=== PATIENT | female | born 1975 | race Caucasian/White ===

== ENCOUNTER 2016-06-06 09:58 | Emergency (ER) | payer MEDICAID, OTHER ==
[2016-06-06] MEDS ORDERED: IPRATROPIUM/ALBUTEROL 0.5-2.5 MG/3 ML AMPUL NEB ONE (10:06)
--- NOTE | 2016-06-06 10:06 | ER Document Report ---
ED Medical Screen (RME) - General Stated Complaint: FEVER,HEADACHE Notes: patient is a 40 year old female presents with head cold/congestion with wheezing. previously treated with steroids, singulair and advair. now with fever. cough worse at night. Cough nonproductive. migraine headache for two days. she has a rx for maxalt but hasnt filled it. fever at home 101.9, took BC powder I have greeted and performed a rapid initial assessment of this patient. A comprehensive ED assessment and evaluation of the patient, analysis of test results and completion of the medical decision making process will be conducted by additional ED providers. TRAVEL OUTSIDE OF THE [place] IN LAST 30 DAYS: No - Related Data Allergies/Adverse Reactions: cephalexin monohydrate [From [employer]] Allergy (Intermediate, Verified 06/06/16 10 :03) rash Past Medical History - Past Medical History Cardiac Medical History: Denies: Hx Coronary Artery Disease, Hx Heart Attack, Hx Hypertension Pulmonary Medical History: Reports: Hx Asthma - no recent ER visit Denies: Hx Bronchitis, Hx COPD, Hx Pneumonia Neurological Medical History: Denies: Hx Cerebrovascular Accident, Hx Seizures Musculoskeltal Medical History: Denies Hx Arthritis Past Surgical History: Reports: Hx Hysterectomy - Immunizations Hx Diphtheria, Pertussis, Tetanus Vaccination: Yes Physical Exam - Vital signs Vitals: Temp Pulse Resp BP Pulse Ox 99.2 F 105 H 20 135/88 H 97 06/06/16 10:01 06/06/16 10:01 06/06/16 10:01 06/06/16 10:01 06/06/16 10:01 Course - Vital Signs Vital signs: Temp Pulse Resp BP Pulse Ox 99.2 F 105 H 20 135/88 H 97 06/06/16 10:01 06/06/16 10:01 06/06/16 10:01 06/06/16 10:01 06/06/16 10:01
--- NOTE | 2016-06-06 11:15 | ER Document Report ---
ED General - General Chief Complaint: Asthma Exacerbation Stated Complaint: FEVER,HEADACHE Mode of Arrival: Ambulatory Information source: Patient Notes: This is a 40-year-old female with a history of asthma who presents with 2 day history of fevers and sinus congestion and pressure/pain. She has also had a cough and wheezing which is responsive to her home nebulizers. She states that she was treated with steroid taper about a month ago but was not having fevers at that time. Her temperature at home today was 101.9 and she took a BC powder prior to her arrival here. She has no chest pain or shortness of breath. She is tolerating po without difficulty. TRAVEL OUTSIDE OF THE [place] IN LAST 30 DAYS: No - Related Data Allergies/Adverse Reactions: cephalexin monohydrate [From [employer]] Allergy (Intermediate, Verified 06/06/16 10 :03) rash Past Medical History - General Information source: Patient - Social History Smoking Status: Current Some Day Smoker Chew tobacco use (# tins/day): No Frequency of alcohol use: None Drug Abuse: None Family History: Reviewed & Not Pertinent Patient has suicidal ideation: No Patient has homicidal ideation: No - Past Medical History Cardiac Medical History: Denies: Hx Coronary Artery Disease, Hx Heart Attack, Hx Hypertension Pulmonary Medical History: Reports: Hx Asthma Denies: Hx Bronchitis, Hx COPD, Hx Pneumonia Neurological Medical History: Denies: Hx Cerebrovascular Accident, Hx Seizures Renal/ Medical History: Denies: Hx Peritoneal Dialysis Musculoskeltal Medical History: Denies Hx Arthritis Past Surgical History: Reports: Hx Hysterectomy - Immunizations Hx Diphtheria, Pertussis, Tetanus Vaccination: Yes Review of Systems - Review of Systems Notes: REVIEW OF SYSTEMS: CONSTITUTIONAL : Fever as per history of present illness EENT: Denies eye, ear, throat, or mouth pain or symptoms. Sinus pain and pressure CARDIOVASCULAR: Denies chest pain. RESPIRATORY: Cough and wheeze as per history of present illness GASTROINTESTINAL: Denies abdominal pain. Denies nausea, vomiting, or diarrhea. GENITOURINARY: Denies difficulty urinating, painful urination, burning, frequency, or blood in urine. MUSCULOSKELETAL: Denies neck or back pain or joint pain or swelling. SKIN: Denies rash or skin lesions. HEMATOLOGIC : Denies easy bruising or bleeding. LYMPHATIC: Denies swollen, enlarged glands. NEUROLOGICAL: Denies altered mental status or loss of consciousness. Mild diffuse headache. PSYCHIATRIC: Denies anxiety or stress or depression. ALL OTHER SYSTEMS REVIEWED AND NEGATIVE. Physical Exam - Vital signs Vitals: Temp Pulse Resp BP Pulse Ox 99.2 F 105 H 20 135/88 H 97 06/06/16 10:06/06/16 10:06/06/16 10:06/06/16 10:06/06/16 10:01 - Notes Notes: PHYSICAL EXAMINATION: GENERAL: Well-appearing, well-nourished and in no acute distress. Pleasant and conversant with no conversational dyspnea HEAD: Atraumatic, normocephalic. EYES: Pupils equal round and reactive to light, extraocular movements intact, sclera anicteric, conjunctiva are normal. ENT: nares with thick mucus, oropharynx clear without exudates. Moist mucous membranes. Bilateral facial maxillary sinus tenderness to palpation NECK: Normal range of motion, supple without lymphadenopathy LUNGS: Good air movement bilaterally with occasional faint end expiratory wheezes bilaterally. No rhonchi. HEART: Regular rate and rhythm without murmurs ABDOMEN: Soft, nontender, normoactive bowel sounds. No guarding, no rebound. No masses appreciated. EXTREMITIES: Normal range of motion, no pitting or edema. NEUROLOGICAL: Cranial nerves grossly intact. Normal speech. No gross focal motor or sensory deficits appreciated. PSYCH: Normal mood, normal affect. SKIN: Warm, Dry, normal turgor, no rashes or lesions noted. Course - Re-evaluation Re-evalutation: 06/06/16 11:15 Patient states that she is already feeling better after the neb treatment given to her upon check-in. We discussed sinusitis and the fact that her chest x-ray is clear today. Will treat with antibiotics and steroids. Patient to continue nebulizer at home. She will follow with her primary care physician. We discussed strict return precautions and she is comfortable with the plan. - Vital Signs Vital signs: Temp Pulse Resp BP Pulse Ox 99.2 F 105 H 16 135/88 H 97 06/06/16 10:06/06/16 10:06/06/16 10:29 06/06/16 10:06/06/16 10:01 - Diagnostic Test Radiology reviewed: Image reviewed, Reports reviewed - Chest x-ray negative Discharge - Discharge Clinical Impression: Asthma Qualifiers: Asthma severity: unspecified severity Asthma complication type: with acute exacerbation Qualified Code(s): J45.901 - Unspecified asthma with (acute) exacerbation Sinusitis Qualifiers: Sinusitis location: maxillary Chronicity: acute Recurrence: not specified as recurrent Qualified Code(s): J01.00 - Acute maxillary sinusitis, unspecified Condition: Stable Disposition: HOME, SELF-CARE Additional Instructions: ASTHMA: You have been diagnosed as having asthma. This is a condition where there is episodic tightness in the bronchial tubes. Allergies, infections, and polluted or cold air may be contributing factors. Emergency treatment of a severe asthma attack may include adrenaline shots , or bronchodilator aerosol. You may feel lightheaded, have a decreased exercise tolerance and a rapid pulse for an hour or two. Rest and get plenty of fluids. Home treatment of asthma requires bronchodilator drugs. These can be administered by injection, inhalation, or by mouth. Antibiotics and corticosteroids may be required for some patients. You should avoid chemical fumes, dusts, pollens, and exercising in very cold or dry air. If you smoke, stop!! If you develop a fever, increased wheezing, chest pain, or severe shortness of breath, you should contact the doctor immediately. STEROID MEDICATION: You have been given an injection of or oral medicine of the cortisone/ steroid class. This medication is used to control inflammation or allergy. Jadiel t is usually only given for a short period of time, until the acute process subsides. There are usually no side effects from short-term use of cortisone-like medications. Some persons feel an increased sense of well-being and are not sleepy at bedtime. Long-term use of cortisone medications is best avoided, unless required for a severe condition. If your condition does not remit, or relapses after the course of corticosteroid medication, you should consult your physician. INHALED BRONCHODILATORS: You have received treatment(s) of and/or prescription for an inhaled bronchodilator -- a medication which stimulates the airways in the lung to dilate. This improves the flow of air in asthma, bronchitis, and emphysema. These medicines have some similarity to adrenaline, and can cause similar side effects: shakiness, racing heart, and a sense of nervousness. These side effects decrease with time. Contact your doctor if these side effects are severe. Do not over-use the medicine. Too-frequent use of the inhaler may make it ineffective. Call your doctor if the inhaler is not controlling your symptoms at the prescribed doses. SMOKING: If you smoke, you should stop smoking. The tar and chemicals in cigarette smoke are harmful. Smoking has been shown to cause: emphysema chronic bronchitis lung cancer mouth and throat cancer stomach and pancreas cancer premature aging defects In addition, smoking increases ear and lung infections in children of smokers. ANTIBIOTIC THERAPY: You have been given an antibiotic prescription. It's important that you take all the medication, unless instructed otherwise by your physician. Failure to complete the entire course can result in relapse of your condition. Common side effects of antibiotics include nausea, intestinal cramping, or diarrhea. Women may develop vaginal yeast infections, and babies can get yeast (thrush) in the mouth following the use of antibiotics. Contact your physician if you develop significant side effects from this medication. Allergy to this antibiotic can result in hives, wheezing, faintness, or itching. If symptoms of allergy occur, stop the medication and call your doctor. Sinusitis You have sinusitis, an infection of the sinus cavities of the face. The sinuses are air-filled chambers which open into the inside of the nose. Bacteria and pus fill a sinus, causing pain, drainage, and fever. Sinusitis is treated with antibiotics. Often, expectorants (to thin the sinus mucous) or decongestants (to reduce swelling) are prescribed as well. Healing requires seven to 10 days. Avoid chemical fumes, pollens, dusts, and smoke (especially cigarette smoke ). Keep the air humidified in your bedroom and work area and take plenty of liquids by mouth. This condition can be serious if the infection spreads. If your symptoms worsen, or if you develop severe headache, high fever, stiff neck, or a rash, you must call the doctor or return for re-evaluation. FOLLOW-UP CARE: If you have been referred to a physician for follow-up care, call the physician s office for an appointment as you were instructed or within the next two days. If you experience worsening or a significant change in your symptoms, notify the physician immediately or return to the Emergency Department at any time for re-evaluation. Prescriptions: Doxycycline Hyclate 100 mg PO BID #20 capsule Guaifenesin/Codeine Phos [Robitussin-AC Syrup 59 ml] 10 ml PO QIDP PRN #200 ml PRN Reason: Prednisone 20 mg PO TID #15 tablet Forms: Return to Work
[2016-06-06 11:47] VITALS: BP 132/86
== END 2016-06-06 11:40 | disposition home or self-care (01) ==
LOC: ER 09:58
DX: J01.00 Acute maxillary sinusitis, unspecified (principal); J45.901 Unspecified asthma with (acute) exacerbation; R50.9 Fever, unspecified; R51 Headache; R09.81 Nasal congestion; F17.200 Nicotine dependence, unspecified, uncomplicated
CPT/HCPCS: 94640; 99284; 71020; J7620

== ENCOUNTER 2016-08-23 09:41 | Emergency (ER) | payer OTHER ==
[2016-08-23] MEDS ORDERED: PREDNISONE 20 MG TABLET PO ONE (10:26)
[2016-08-23] MEDS ORDERED: IPRATROPIUM/ALBUTEROL 0.5-2.5 MG/3 ML AMPUL NEB ONE (10:26)
--- NOTE | 2016-08-23 10:27 | ER Document Report ---
ED Medical Screen (RME) - General Chief Complaint: Asthma Exacerbation Stated Complaint: BREATHING ISSUES Time Seen by Provider: 08/23/16 10:26 Mode of Arrival: Ambulatory Information source: Patient Notes: Presents complaining of asthma exacerbation for the past 2 days. Pt States she has used her albuterol inhaler without improvement of her symptoms. Patient denies any fever. Cough has been nonproductive. TRAVEL OUTSIDE OF THE [place] IN LAST 30 DAYS: No - Related Data Allergies/Adverse Reactions: cephalexin monohydrate [From [employer]] Allergy (Intermediate, Verified 08/23/16 09 :48) rash Past Medical History - Social History Chew tobacco use (# tins/day): No Frequency of alcohol use: None Drug Abuse: None - Past Medical History Cardiac Medical History: Denies: Hx Coronary Artery Disease, Hx Heart Attack, Hx Hypertension Pulmonary Medical History: Reports: Hx Asthma Denies: Hx Bronchitis, Hx COPD, Hx Pneumonia Neurological Medical History: Denies: Hx Cerebrovascular Accident, Hx Seizures Renal/ Medical History: Denies: Hx Peritoneal Dialysis Musculoskeltal Medical History: Denies Hx Arthritis Past Surgical History: Reports: Hx Hysterectomy - Immunizations Hx Diphtheria, Pertussis, Tetanus Vaccination: Yes Physical Exam - Vital signs Vitals: Temp Pulse Resp BP Pulse Ox 98.4 F 89 26 H 138/84 H 98 08/23/16 09:45 08/23/16 09:45 08/23/16 09:45 08/23/16 09:45 08/23/16 09:45 - Respiratory Respiratory status: No respiratory distress Breath sounds: Nonproductive cough, Wheezing Course - Vital Signs Vital signs: Temp Pulse Resp BP Pulse Ox 98.4 F 89 26 H 138/84 H 98 08/23/16 09:45 08/23/16 09:45 08/23/16 09:45 08/23/16 09:45 08/23/16 09:45
[2016-08-23] MEDS: ALBUTEROL SULFATE 0.083% NEB 2.5 MG/3 ML AMPUL NEB SCH ×2 (11:11→11:38)
--- NOTE | 2016-08-23 11:17 | ER Document Report ---
HPI - HPI Patient complains to provider of: asthma Pain Level: 1 Context: Patient is a 41-year-old female presents emergency department complaining of cough with associated shortness of breath intermittently for the past 2 days. Patient states she has a history of asthma with relief from her inhaler. Patient states that she has relief for about a couple hours but then had another fit. Any productive cough, fever, chills, chest pain - REPRODUCTIVE Reproductive: DENIES: : - DERM Skin Color: Normal Past Medical History - General Information source: Patient - Social History Smoking Status: Current Some Day Smoker Chew tobacco use (# tins/day): No Frequency of alcohol use: None Drug Abuse: None Family History: Reviewed & Not Pertinent Patient has suicidal ideation: No Patient has homicidal ideation: No - Past Medical History Cardiac Medical History: Denies: Hx Coronary Artery Disease, Hx Heart Attack, Hx Hypertension Pulmonary Medical History: Reports: Hx Asthma Denies: Hx Bronchitis, Hx COPD, Hx Pneumonia Neurological Medical History: Denies: Hx Cerebrovascular Accident, Hx Seizures Renal/ Medical History: Denies: Hx Peritoneal Dialysis Musculoskeltal Medical History: Denies Hx Arthritis Past Surgical History: Reports: Hx Hysterectomy - Immunizations Hx Diphtheria, Pertussis, Tetanus Vaccination: Yes Vertical Provider Document - CONSTITUTIONAL Agree With Documented VS: Yes Exam Limitations: No Limitations General Appearance: WD/WN, No Apparent Distress Notes: PHYSICAL EXAM GENERAL: Alert, interacts well. NECK: Full range of motion. Supple. Trachea midline. LUNGS: mild wheezes on expiration b/l without, rales, or rhonchi. No respiratory distress. HEART: Regular rate and rhythm. No murmurs, gallops, or rubs. NEUROLOGICAL: Alert and oriented x4. Normal speech. PSYCH: Normal affect, normal mood. SKIN: Warm, dry, normal turgor. No rashes or lesions noted. - INFECTION CONTROL TRAVEL OUTSIDE OF THE [place] IN LAST 30 DAYS: No - RESPIRATORY O2 Sat by Pulse Oximetry: 98 Course - Re-evaluation Re-evalutation: 08/23/16 11:43 Patient is a 41-year-old female is hemodynamic stable, no acute distress and afebrile. Patient received 2 breathing treatments in the department and feels better. Patient medicated with steroids and stable for discharge home. Patient to follow-up with primary care next week. Strict return precautions discussed and patient agrees with plan. - Vital Signs Vital signs: Temp Pulse Resp BP Pulse Ox 98.4 F 89 26 H 138/84 H 98 08/23/16 09:45 08/23/16 09:45 08/23/16 09:45 08/23/16 09:45 08/23/16 09:45 Discharge - Discharge Clinical Impression: Asthma Condition: Good Disposition: HOME, SELF-CARE Instructions: Asthma ([facility]) Additional Instructions: Follow up with your primary care in 3-5 days if symptoms do not improve Prescriptions: Prednisone [Deltasone 20 mg Tablet] 3 tab PO DAILY 3 Days Forms: Elevated Blood Pressure, Return to Work
[2016-08-23 11:52] VITALS: BP 125/83
== END 2016-08-23 11:52 | disposition home or self-care (01) ==
LOC: ER 09:41
DX: J45.909 Unspecified asthma, uncomplicated (principal); R05 Cough; R06.02 Shortness of breath; F17.200 Nicotine dependence, unspecified, uncomplicated
CPT/HCPCS: 94640 ×2; 99284; J7512; J7620

== ENCOUNTER 2016-10-29 03:28 | Inpatient (IN) | payer OTHER ==
[2016-10-29] MEDS ORDERED: IPRATROPIUM/ALBUTEROL 0.5-2.5 MG/3 ML AMPUL NEB ONE (03:32)
[2016-10-29] MEDS ORDERED: PREDNISONE 20 MG TABLET PO ONE (03:32)
[2016-10-29] MEDS ORDERED: ALBUTEROL SULFATE 0.083% NEB 2.5 MG/3 ML AMPUL NEB SCH (03:48)
[2016-10-29] MEDS ORDERED: ALBUTEROL SULFATE 0.083% NEB 2.5 MG/3 ML AMPUL NEB ONE ×2 (03:50→04:31)
[2016-10-29] MEDS ORDERED: METHYLPREDNISOLONE INJ 125 MG/2 ML SDV IV ONE (03:51)
--- NOTE | 2016-10-29 03:54 | ER Document Report ---
ED General - General Chief Complaint: Breathing Difficulty Stated Complaint: TROUBLE BREATHING Time Seen by Provider: 10/29/16 03:46 Notes: Patient is a 41-year-old female presents with complaint of some shortness of breath. subjective fevers. No vomiting. No diarrhea. Had a cough approximately 2 days ago. In the last 24 hours she has had wheezing and significant difficulty breathing. She tried using her nebulizer at home. She was giving herself DuoNeb treatments. They are not helping. She therefore came to the ER via private vehicle. was driving. She is a smoker. She does have history of asthma since childhood. She has been hospitalized for asthma in the past. She has never required a ventilator. No other complaints at this time. TRAVEL OUTSIDE OF THE [place] IN LAST 30 DAYS: No - Related Data Allergies/Adverse Reactions: cephalexin monohydrate [From [employer]] Allergy (Intermediate, Verified 10/29/16 03 :34) rash Past Medical History - Social History Smoking Status: Current Every Day Smoker Frequency of alcohol use: None Drug Abuse: None Family History: Reviewed & Not Pertinent - Past Medical History Cardiac Medical History: Denies: Hx Coronary Artery Disease, Hx Heart Attack, Hx Hypertension Pulmonary Medical History: Reports: Hx Asthma Denies: Hx Bronchitis, Hx COPD, Hx Pneumonia Neurological Medical History: Denies: Hx Cerebrovascular Accident, Hx Seizures Renal/ Medical History: Denies: Hx Peritoneal Dialysis Musculoskeltal Medical History: Denies Hx Arthritis Past Surgical History: Reports: Hx Hysterectomy - Immunizations Hx Diphtheria, Pertussis, Tetanus Vaccination: Yes Review of Systems - Review of Systems Notes: My Normal Review Basic REVIEW OF SYSTEMS: CONSTITUTIONAL : Denies fever, chills, or sweats. Denies recent illness. EENT: Denies eye, ear, throat, or mouth pain or symptoms. Denies nasal or sinus congestion. CARDIOVASCULAR: Denies chest pain. RESPIRATORY: Wheezing and difficulty breathing. GASTROINTESTINAL: Denies abdominal pain. Denies nausea, vomiting, or diarrhea. MUSCULOSKELETAL: Denies neck or back pain or joint pain or swelling. SKIN: Denies rash or skin lesions. NEUROLOGICAL: Denies altered mental status or loss of consciousness. Denies headache. Denies weakness or paralysis or loss of use of either side. Denies problems with gait or speech. Denies sensory or motor loss. ALL OTHER SYSTEMS REVIEWED AND NEGATIVE. Physical Exam - Vital signs Vitals: Temp Pulse Resp BP Pulse Ox 98.1 F 86 24 H 138/74 H 98 10/29/16 03:34 10/29/16 03:34 10/29/16 03:34 10/29/16 03:34 10/29/16 03:34 - Notes Notes: General Appearance: Well nourished, alert, cooperative, moderate acute distress , no obvious discomfort. Vitals: reviewed, See vital signs table. Head: no swelling or tenderness to the head Eyes: PERRL, EOMI, Conjuctiva clear Mouth: No decreasd moisture Lungs: Diffuse wheezing, No rales, No rhonci, moderate accessory muscle use, fair air exchange bilaterally. Heart: Regular rate, Regular rythm, No murmur, no rub Abdomen: Normal BS, soft, No rigidity, No abdominal tenderness, No guarding, no rebound, no abdominal masses, no organomegaly Extremities: strength 5/5 in all extremities, good pulses in all extremities, no swelling or tenderness in the extremities, no edema. Skin: warm, dry, appropriate color, no rash Neuro: speech clear, oriented x 3, normal affect, responds appropriately to questions. Course - Re-evaluation Re-evalutation: 10/29/16 04:32 On reevaluation patient still has increased work of breathing and still has a large amount of wheezing and diminished air exchange. I have ordered BiPAP as well as continued albuterol treatments. 10/29/16 05:42 Patient is doing much better on the BiPAP. Her work of breathing has decreased significantly. She still has some wheezing but not as severe as it was before. Her air exchange is improving. - Vital Signs Vital signs: Temp Pulse Resp BP Pulse Ox 98.1 F 86 32 H 115/83 99 10/29/16 03:34 10/29/16 03:34 10/29/16 04:47 10/29/16 04:01 10/29/16 04:47 - Laboratory Result Diagrams: 10/29/16 03:46 10/29/16 03:46 Laboratory results interpreted by me: 10/29/16 03:46 WBC 12.1 H Hgb 16.2 H - EKG Interpretation by Me Additional EKG results interpreted by me: 10/29/16 05:20 EKG is reviewed and interpreted by me. EKG shows normal sinus rhythm with rate of [address] segment elevation or depression. No ischemic T-wave inversions. DC interval, QRS duration, QTc intervals are within normal range. No old EKG available for comparison.
[2016-10-29] MEDS: MAGNESIUM SULFATE/D5W 100 ML IV SCH ×2 (04:01→04:30)
--- NOTE | 2016-10-29 05:06 | RADIOLOGY REPORT (SQ) ---
EXAM DESCRIPTION: CHEST SINGLE VIEW COMPLETED DATE/TIME: 10/29/2016 4:53 am REASON FOR STUDY: difficulty breathing COMPARISON: None. EXAM PARAMETERS: NUMBER OF VIEWS: One view. TECHNIQUE: Single frontal radiographic view of the chest acquired. RADIATION DOSE: NA LIMITATIONS: None. FINDINGS: LUNGS AND PLEURA: No opacities, masses or pneumothorax. No pleural effusion. Moderate chr onic hyperinflation. MEDIASTINUM AND HILAR STRUCTURES: No masses. Contour normal. HEART AND VASCULAR STRUCTURES: Heart normal in size. Normal vasculature. BONES: No acute findings. HARDWARE: None in the chest. OTHER: No other significant finding. IMPRESSION: No acute cardiopulmonary findings. TECHNICAL DOCUMENTATION: JOB ID: [id number]
[2016-10-29 05:19] LABS: ABSOLUTE BASOPHILS # (AUTO) 0.1 10^3/uL (0.0-0.2); ABSOLUTE EOSINOPHILS # (AUTO) 0.6 10^3/uL (0.0-0.6); ABSOLUTE LYMPHOCYTES (AUTO) 2.8 10^3/uL (0.5-4.7); ABSOLUTE MONOCYTES (AUTO) 0.7 10^3/uL (0.1-1.4); ABSOLUTE NEUT (AUTO) 7.9 10^3/uL (1.7-8.2); EOSINOPHILS % (AUTO) 5.3 % (0-6); HEMATOCRIT 46.9 % (36.0-47.0); HEMOGLOBIN 16.2 g/dL (12.0-15.5); HGB HCT DIFFERENCE 1.7; LYMPHOCYTES % (AUTO) 23.1 % (13-45); MEAN CORPUSCULAR HGB CONC 34.6 g/dL (32.0-36.0); MEAN CORPUSCULAR VOLUME 93 fl (80-97); MONOCYTES % (AUTO) 5.9 % (3-13); RED BLOOD COUNT 5.07 10^6/uL (3.72-5.28); RED CELL DISTRIBUTION WIDTH 12.8 % (11.5-14.0); SEGMENTED NEUTROPHILS % (AUTO) 64.7 % (42-78); WHITE BLOOD COUNT 12.1 10^3/uL (4.0-10.5)
[2016-10-29 05:40] LABS: ALANINE AMINOTRANSFERASE 32 U/L (9-52); ALBUMIN 4.2 g/dL (3.5-5.0); ALKALINE PHOSPHATASE 91 U/L (38-126); ANION GAP 13 (5-19); ASPARTATE AMINO TRANSFERASE 25 U/L (14-36); BILIRUBIN,DIRECT 0.4 mg/dL (0.0-0.4); BILIRUBIN,TOTAL 0.6 mg/dL (0.2-1.3); BLOOD UREA NITROGEN 10 mg/dL (7-20); CALCIUM 10.2 mg/dL (8.4-10.2); CARBON DIOXIDE 21 mmol/L (22-30); CHLORIDE 108 mmol/L (98-107); CREATININE RESULT 0.76 mg/dL (0.52-1.25); GLUCOSE 90 mg/dL (75-110); POTASSIUM 3.7 mmol/L (3.6-5.0); SODIUM 141.8 mmol/L (137-145); TOTAL PROTEIN 7.2 g/dL (6.3-8.2)
[2016-10-29 06:38] LABS: ADD ON TESTING BLD IN LAB ACKNOWLEDGE
[2016-10-29 07:03] LABS: MAGNESIUM 1.7 mg/dL (1.6-2.3)
[2016-10-29 07:13] LABS: ARTERIAL BLOOD BASE EXCESS -2.2 mmol/L; ARTERIAL BLOOD O2 SATURATION 98.8 % (94-98)
[2016-10-29] MEDS ORDERED: NICOTINE 14 MG/24 HR PATCH.TD24 TD PRN (08:02)
[2016-10-29] MEDS ORDERED: DEXTROSE 40% GEL 15 GM TUBE PO PRN ×2 (08:03)
[2016-10-29] MEDS ORDERED: DEXTROSE 50%-WATER 25 GM/50 ML DISP.SYRIN IV PRN ×2 (08:03)
[2016-10-29] MEDS ORDERED: GLUCAGON,HUMAN RECOMB 1 MG INJ IM PRN (08:03)
[2016-10-29] MEDS ORDERED: INSULIN LISPRO 100 UNIT/ML 3 ML VIAL SUBCUT PRN (08:03)
[2016-10-29] MEDS ORDERED: NORMAL SALINE 1000 ML 1,000 ML IV PRN (08:03)
[2016-10-29] MEDS ORDERED: ALBUTEROL SULFATE 0.083% NEB 2.5 MG/3 ML AMPUL NEB PRN (08:04)
[2016-10-29] MEDS ORDERED: GUAIFENESIN SYRP 200 MG/10 ML UDC PO PRN (08:04)
[2016-10-29] MEDS ORDERED: PROMETHAZINE HCL 25 MG TABLET PO PRN (08:09)
--- NOTE | 2016-10-29 08:54 | PDOC H&P ---
History of Present Illness Admission Date/PCP: 10/29/16 06:13 [facility] Rheumatology [facility] Patient complains of: Short of breath History of Present Illness: JACQUELINE ALEX is a 41 year old female with long-standing asthma, along with rheumatoid arthritis, half pack a day smoker, who presents to the emergency room for evaluation of above complaints. Patient has been discussed with emergency room physician who evaluated the patient. Was in fairly significant respiratory distress upon arrival, with minimal improvement with initial treatment. However, with further treatment including application of BiPAP, her overall clinical picture has improved considerably, according to the emergency room physician. She describes a 2 day history of slowly progressive difficulty breathing, starting with a mildly productive cough, with onset of wheezing and significant worsening in her breathing effort over the past 24 hours. Subjective fever. Mild chest discomfort only with coughing or when her shortness of breath is at its worst. No chills. No nausea vomiting. No diarrhea or dysuria. Has never been intubated for respiratory difficulty. This is her third emergency room visit in 1 year. Very distant history of hospitalization for asthma exacerbation. Currently resting quietly, breathing much more comfortably. Dictation via voice recognition software. Laboratory results are listed in [employer] and are reviewed. X-ray summary results are listed below, with full report(s) reviewed. . EKG reviewed. No prior EKG available for comparison. Social history/personal habits: Single. Has children. Unemployed. Half pack of cigarettes per day. No alcohol or illicit drug use. Allergies/adverse reactions are listed in [employer] and are reviewed. No problems with penicillin. Home medications initially autopopulated into [employer] may not accurately reflect patient's true medications, dosages, and/or frequencies. electrical design technologist to reconcile medications. Unfortunately, patient not certain of all medications/dosages/frequencies. REVIEW OF SYSTEMS: Constitutional: See history and present illness. Eyes: No vision complaints. ENT: No swallowing problems or complaints. Denies hearing loss. Pulmonary: See history and present illness. Cardiovascular: See history and present illness. Gastrointestinal: No current complaints, including nausea or vomiting. Skin: No current complaints, including rashes. Hematologic: Easy bruising. Neurologic: No current complaints, including numbness or tingling. Musculoskeletal: Joint pain from arthritis. Psychiatric: Denies anxiety or depression. Endocrine: No current complaints, including polyuria. Genitourinary: No current complaints, including dysuria. PHYSICAL EXAMINATION: 5 feet 5 inches tall. 66.1 kg. BMI 24.2 kg/m. Blood pressure 118/70. Pulse 90 and regular. 98% saturation on BiPAP 12/6, 30%. Respirations are 24 and unlabored. Temperature 98.1. Well-nourished well-developed female appearing approximately her stated age. Perhaps slightly fatigued. Mildly anxious, without agitation. Awake alert and cooperative. Boyfriend is present at her side; patient approves. Female emergency room nursing educator Lilly is present. Skin is warm and dry. No grossly obvious evidence of rash in areas of skin examined. No subcutaneous nodules palpated. ENT: Hearing grossly normal to normal conversation. Tongue midline on protrusion pink and slightly tacky. Exam slightly limited by BiPAP mask with attaching straps. Eyes: No scleral icterus. Pupils equal and reactive to light at 4 mm. [place] conjunctivae. Neck is supple and nontender to gentle active range of motion and palpation. Midline trachea. No palpable thyroid nodule mass enlargement or tenderness. Lymphatic: No palpable cervical or clavicular nodes. Neck and lymphatic exams limited by patient body habitus. Exam slightly limited by BiPAP mask with attaching straps. Psychiatric: Reasonable insight into acute and chronic medical issues. Oriented to time location and why here. Lungs: Auscultation reveals equal breath sounds bilaterally. No use of accessory respiratory muscles. Mild diffuse expiratory wheezing bilaterally, with slightly coarse breath sounds toward the base. Cardiovascular: Heart regular rate and rhythm, without gallop murmur or rub. No abdominal aortic bruits. No ankle or pedal edema. Faintly palpable dorsalis pedis pulses. Difficult to evaluate for carotid bruit due to airway sounds from BiPAP device. Abdomen:soft slightly distended nontender with positive bowel sounds. Unable to adequately evaluate abdomen for masses or organomegaly due to distention. Extremities: Feet are warm and dry. No calf tenderness to compression. No grossly obvious visual evidence of calf swelling. Gentle manipulation of lower extremities fails to reveal any obvious evidence of injury or instability to knees hips or ankles. Neurologic: Moves upper extremities grossly normally. Patellar reflexes absent. Absent Babinski. Light touch is intact at feet. Dorsiflexion and plantarflexion of feet 5 / 5 and symmetric. Past Medical History Cardiac Medical History: Denies: Atrial Fibrillation, Congestive Heart Failure, Coronary Artery Disease, DVT, Myocardial Infarction, Hyperlipidema, Hypertension, Pulmonary Embolism Pulmonary Medical History: Reports: Asthma Denies: Bronchitis, Chronic Obstructive Pulmonary Disease (COPD), Pneumonia, Sleep Apnea EENT Medical History: Denies: Eyes, Ears, Throat Neurological Medical History: Denies: Hemorrhagic CVA, Ischemic CVA, Seizures Endocrine Medical History: Denies: Diabetes Mellitus Type 1, Diabetes Mellitus Type 2, Hyperthyroidism, Hypothyroidism Renal/ Medical History: Reports: None GI Medical History: Denies: Cirrhosis, Gastroesophageal Reflux Disease, Hepatitis, Peptic Ulcer Disease Musculoskeltal Medical History: Reports: Arthritis - Rheumatoid Skin Medical History: Reports: None Psychiatric Medical History: Reports: Tobacco Dependency Denies: Alcohol Dependency, Depression, General Anxiety Disorder, Substance Abuse Hematology: Reports: Anemia - in past, Other - Easy bruising Infectious Medical History: Denies: Hepatitis B, Hepatitis C Past Surgical History Past Surgical History: Reports: Hysterectomy Social History Information Source: Patient, Emergency Med Personnel, [facility] Records Smoking Status: Current Every Day Smoker Frequency of Alcohol Use: None Drugs: None - Advance Directive Resuscitation Status: Full Code Surrogate healthcare decision maker:: Boyfriend Favio Jean Family History Family History: Reviewed & Not Pertinent Parental Family History Reviewed: Yes - Father was "killed." Mother is alive, childhood asthma Children Family History Reviewed: Yes - Asthma Sibling(s) Family History Reviewed.: Yes - Healthy Medication/Allergy Home Medications: Albuterol Sulfate [Proair HFA] 2 puff IH QIDP PRN 10/29/16 Clonazepam [Klonopin] 0.5 mg PO Q12HP PRN 10/29/16 Montelukast Sodium [Singulair 10 mg Tablet] 10 mg PO QHS 10/29/16 Prednisone [Deltasone 20 mg Tablet] 40 mg PO DAILYP PRN 10/29/16 Allergies/Adverse Reactions: cephalexin monohydrate [From Keflex] Allergy (Intermediate, Verified 10/29/16 03 :34) rash Physical Exam Vital Signs: Temp Pulse Resp BP Pulse Ox 98.1 F 86 32 H 115/83 99 10/29/16 03:34 10/29/16 03:34 10/29/16 04:47 10/29/16 04:01 10/29/16 04:47 Results Laboratory Results: 10/29/16 06:57 Carbonic Acid 0.84 L HCO3/H2CO3 Ratio 23:1 ABG pH 7.47 H ABG pCO2 27.8 L ABG pO2 132.5 H ABG HCO3 19.8 L ABG O2 Saturation 98.8 H ABG Base Excess -2.2 FiO2 30% Impressions: Chest X-Ray 10/29/16 03:42 IMPRESSION: No acute cardiopulmonary findings. Assessment & Plan - Diagnosis (1) Asthma exacerbation Is this a current diagnosis for this admission?: YesPlan: Patient will be admitted under asthma exacerbation protocol. Incentive spirometry twice a day. Scheduled DuoNeb's. As needed albuterol nebs. Solu-Medrol. Prevacid for gastritis prophylaxis. I strongly encouraged patient to notify staff should patient feel that breathing is worsening. Patient is a full code. I have strongly encouraged patient not to get out of bed without notifying staff , to avoid a fall with injury. Knee high SCDs for DVT prophylaxis, along with subcutaneous Lovenox. Impression and plans were discussed with patient and boyfriend, both of whom concur. Time spent in evaluation and management of patient: 70 critical-care minutes. (2) DVT prophylaxis Is this a current diagnosis for this admission?: Yes (3) Rheumatoid arthritis Qualifiers: Rheumatoid arthritis location: unspecified site Is this a current diagnosis for this admission?: YesPlan: As needed pain medication. Resume home medications as appropriate once these have been determined and reviewed. (4) Tobacco dependency Is this a current diagnosis for this admission?: YesPlan: As needed nicotine patch. (5) Acute and chronic respiratory failure Qualifiers: Respiratory failure complication: unspecified whether with hypoxia or hypercapnia Qualified Code(s): J96.20 - Acute and chronic respiratory failure, unspecified whether with hypoxia or hypercapnia Is this a current diagnosis for this admission?: Yes - Time Critical Time spent with patient: 35 or more minutes Anticipated discharge: Home Within: within 72 hours - Inpatient Certification Based on my medical assessment, after consideration of the patient's comorbidities, presenting symptoms, or acuity I expect that the services needed warrant INPATIENT care.: Yes I certify that my determination is in accordance with my understanding of Medicare's requirements for reasonable and necessary INPATIENT services [42 CFR 412.3e].: Yes Medical Necessity: Need Close Monitoring Due to Risk of Patient Decompensation, Need For IV Fluids, Need For Continuous Telemetry Monitoring, Need for Nebulizer Therapy and Monitoring of Response, Risk of Diagnosis Which Will Require Inpatient Eval/Care/Monitoring Post Hospital Care: D/C or Transfer Summary
[2016-10-29] MEDS ORDERED: KETOROLAC TROMETHAMINE INJ/PF 30 MG/1 ML SDV IV ONE ×2 (09:00→15:15)
[2016-10-29] MEDS ORDERED: LANSOPRAZOLE 30 MG TAB.RAP.DR PO ONE (09:00)
[2016-10-29] MEDS ORDERED: METHYLPREDNISOLONE INJ 40 MG/1 ML SDV IV SCH (10:00)
[2016-10-29] MEDS: ENOXAPARIN SODIUM INJ 40 MG/0.4 ML DISP.SYRIN SUBCUT SCH (10:58)
[2016-10-29] MEDS: ACETAMINOPHEN 325 MG TABLET PO PRN ×3 (12:24→21:57)
--- NOTE | 2016-10-29 13:05 | EKG REPORT ---
SEVERITY:- ABNORMAL ECG - SINUS RHYTHM PROBABLE LEFT VENTRICULAR HYPERTROPHY : Confirmed by: Kenton Diaz 29-Oct-2016 13:05:19
[2016-10-29] MEDS: IPRATROPIUM/ALBUTEROL 0.5-2.5 MG/3 ML AMPUL NEB SCH ×2 (13:22→20:26)
[2016-10-29] MEDS ORDERED: ONDANSETRON 4 MG TAB.RAPDIS PO PRN (14:40)
[2016-10-29] MEDS ORDERED: (PENDING PHARMACY ID) (Clonazepam [Klonopin] 0.5 MG) PO PRN (14:44)
[2016-10-29] MEDS ORDERED: DOXYCYCLINE HYCLATE 100 MG TABLET PO ONE (15:00)
[2016-10-29] MEDS ORDERED: CLONAZEPAM 1 MG TABLET PO PRN ×2 (15:03→22:53)
[2016-10-29] MEDS ORDERED: LORATADINE 10 MG TABLET PO ONE (15:15)
[2016-10-29] MEDS ORDERED: FLUTICASONE NASAL SPRAY 50 MCG/SPRY 120 SPRAY/16 GM NASL ONE (15:30)
[2016-10-29] MEDS ORDERED: FLUTICASONE/SALMETEROL DISKUS 250-50 MCG/DOSE IH ONE (15:30)
--- NOTE | 2016-10-29 16:07 | PROGRESS NOTE E ---
Progress Note NAME: JACQUELINE ALEX : 1975 AGE: 41Y DATE: 10/29/2016 ROOM: 335 SUBJECTIVE: The patient is currently lying in bed. The patient is having difficulty completing sentences. Overall though, she states she feels much better than when she came in. She denies any nausea, vomiting, diarrhea. No dizziness. No chest pain. The patient has had a strong cough, but is unable to produce any sputum. The patient does admit to a headache, and the patient does not voice any other concerns at this time. REVIEW OF SYSTEMS: Rest of review of systems are negative. MEDICATIONS: Medications have been reviewed. OBJECTIVE: GENERAL: The patient is a 41-year-old female who is awake, alert, and oriented to person, place, time and situation. She is verbal and conversational. Does not appear to be in acute distress. VITAL SIGNS: As follows: Temperature is 97.7, pulse 88, respirations 18, blood pressure 103/61. Oxygen saturation is 98% on 2 L nasal cannula. SKIN: Warm and dry. No rash. Not diaphoretic. HEENT: Pupils equal round, reactive to light and accommodation. Conjunctivae pink. No JVP. CARDIOVASCULAR: Heart is regular; there is no murmur or rub. CHEST: Bilateral expiratory wheezes. Symmetrical, unlabored. ABDOMEN: Soft, nontender, nondistended. BACK: No CVA tenderness or sacral edema. EXTREMITIES: No clubbing, cyanosis, or edema. DIAGNOSTICS: Lab values are as follows: Hematology obtained 10/29/2016: WBC of 12.1, hemoglobin of 16.2, hematocrit 36.9, platelet count. Chemistry obtained on 10/29/2016: Sodium is 141, potassium is 3.7, chloride is 108, carbon dioxide 21, BUN 10, creatinine 0.76, glucose 90, calcium is 10.2, magnesium is 1.7, bilirubin is 0.6, AST 25, ALT is 32, alk phos 91, total protein is 7.2, albumin 4.2. Serum HCG level is negative. IMPRESSION AND PLAN: 1. CHRONIC OBSTRUCTIVE PULMONARY DISEASE EXACERBATION. Will continue nebulizers as well as steroids and follow. 2. ACUTE BRONCHITIS AND ACUTE SINUSITIS. Will start the patient on doxycycline. Add Flonase as well as antihistamines, and most likely this the source for #1. 3. TOBACCO DEPENDENCY. Spent 3 minutes discussing smoking cessation and education. The patient declines any pharmacological intervention at this time; however, will add a p.r.n. nicotine patch. 4. GENERAL ANXIETY DISORDER. Will continue p.r.n. Klonopin. DISPOSITION: The patient is a FULL CODE. Pending patient's symptomatology and diagnostic findings, will reevaluate in the a.m. TIME SPENT ON THIS FOLLOWUP: Including assessment, plan, physical examination, patient education, and family meeting is 35 minutes. DICTATING PHYSICIAN: RENETTA CHERY NP [id number] PHY#: [id number] ID: [id number] JOB#: [id number] ACCT: [id number] cc: > MTDD
[2016-10-29] MEDS ORDERED: LANSOPRAZOLE 30 MG TAB.RAP.DR PO SCH (17:00)
[2016-10-29] MEDS ORDERED: PREDNISONE 20 MG TABLET PO SCH (18:00)
[2016-10-29] MEDS ORDERED: BENZONATATE 100 MG CAPSULE PO PRN (19:48)
[2016-10-29] MEDS: FAMOTIDINE 20 MG TABLET PO SCH (21:27)
[2016-10-29] MEDS ORDERED: MONTELUKAST SODIUM 10 MG TABLET PO SCH ×2 (22:00)
[2016-10-30] MEDS ORDERED: DOXYCYCLINE HYCLATE 100 MG TABLET PO SCH (06:00)
[2016-10-30 07:09] LABS: ABSOLUTE LYMPHOCYTES (AUTO) 0.9 10^3/uL (0.5-4.7); ABSOLUTE MONOCYTES (AUTO) 0.7 10^3/uL (0.1-1.4); ABSOLUTE NEUT (AUTO) 15.5 10^3/uL (1.7-8.2); BASOPHILS % (AUTO) 0.2 % (0-2); HEMATOCRIT 44.7 % (36.0-47.0); HEMOGLOBIN 15.3 g/dL (12.0-15.5); HGB HCT DIFFERENCE 1.2; LYMPHOCYTES % (AUTO) 5.5 % (13-45); MEAN CORPUSCULAR HEMOGLOBIN 31.8 pg (27.0-33.4); MEAN CORPUSCULAR HGB CONC 34.2 g/dL (32.0-36.0); MEAN CORPUSCULAR VOLUME 93 fl (80-97); MONOCYTES % (AUTO) 4.1 % (3-13); RED BLOOD COUNT 4.81 10^6/uL (3.72-5.28); RED CELL DISTRIBUTION WIDTH 12.8 % (11.5-14.0); SEGMENTED NEUTROPHILS % (AUTO) 90.2 % (42-78); WHITE BLOOD COUNT 17.2 10^3/uL (4.0-10.5)
[2016-10-30 07:32] LABS: ANION GAP 12 (5-19); BLOOD UREA NITROGEN 11 mg/dL (7-20); CALCIUM 10.2 mg/dL (8.4-10.2); CARBON DIOXIDE 21 mmol/L (22-30); CHLORIDE 108 mmol/L (98-107); CREATININE RESULT 0.69 mg/dL (0.52-1.25); GLUCOSE 104 mg/dL (75-110); POTASSIUM 4.8 mmol/L (3.6-5.0); SODIUM 140.9 mmol/L (137-145)
[2016-10-30] MEDS: IPRATROPIUM/ALBUTEROL 0.5-2.5 MG/3 ML AMPUL NEB SCH (08:39)
[2016-10-30] MEDS ORDERED: LORATADINE 10 MG TABLET PO SCH (10:00)
[2016-10-30] MEDS ORDERED: PREDNISONE 20 MG TABLET PO SCH (10:00)
[2016-10-30] MEDS ORDERED: FLUTICASONE NASAL SPRAY 50 MCG/SPRY 120 SPRAY/16 GM NASL SCH (10:00)
[2016-10-30] MEDS ORDERED: FLUTICASONE/SALMETEROL DISKUS 250-50 MCG/DOSE IH SCH (10:00)
--- NOTE | 2016-10-30 11:04 | PDOC DISCHARGE SUMMARY ---
General - Admit/Disc Date/PCP Admission Date/Primary Care Provider: 10/29/16 08:04 Discharge Date: 10/30/16 - Discharge Diagnosis (1) Acute and chronic respiratory failure Is this a current diagnosis for this admission?: YesSummary: Patient with mild to moderate asthma, who presented with severe wheezing and dyspnea. Chest x-ray does not show any pneumonia or infiltrates. She was treated with nebulizers, steroids and broad spectrum antibiotics (2) Asthma exacerbation Is this a current diagnosis for this admission?: YesSummary: Improved. She has no further wheezing (3) Rheumatoid arthritis Is this a current diagnosis for this admission?: YesSummary: Continue home medications (4) Tobacco dependency Is this a current diagnosis for this admission?: Yes - Additional Information Resuscitation Status: Full Code Home Medications: Clonazepam [Klonopin] 0.5 mg PO Q12HP PRN 10/29/16 Acetaminophen [Tylenol 325 mg Tablet] 650 mg PO Q4HP PRN tablet 10/30/16 Albuterol Sulfate [Proair HFA] 2 puff IH QIDP PRN #1 hfa.aer.ad 10/30/16 Albuterol Sulfate [Ventolin 0.083% Neb 2.5 mg/3 mL Ampul] 2.5 mg NEB RTQ4HP PRN vial.neb 10/30/16 Doxycycline Hyclate [Vibramycin 100 mg Tablet] 100 mg PO Q12A #16 tablet Fluticasone/Salmeterol [Advair 250-50 Diskus 14 Dose/Diskus] 1 inh IH Q12 inhaler 10/30/16 Guaifenesin [Robitussin Syrup 200 mg/10 ml Ud Cup] 200 mg PO Q4HP PRN udc 10/30 Guaifenesin/Codeine Phosphate [Cheratussin AC Syrup] 10 ml PO Q4HP PRN #240 ml 10/30/16 Loratadine [Claritin 10 mg Tablet] 10 mg PO DAILY #0 tablet 10/30/16 Montelukast Sodium [Singulair 10 mg Tablet] 10 mg PO QHS #30 tablet 10/30/16 Prednisone [Deltasone 20 mg Tablet] 20 mg PO ASDIR PRN #9 tablet 10/30/16 History of Present Illness Patient complains of: Dyspnea and wheezing History of Present Illness: JACQUELINE ALEX is a 41 year old female with long-standing asthma, along with rheumatoid arthritis, half pack a day smoker, who presents to the emergency room for evaluation of above complaints. Patient has been discussed with emergency room physician who evaluated the patient. Was in fairly significant respiratory distress upon arrival, with minimal improvement with initial treatment. However, with further treatment including application of BiPAP, her overall clinical picture has improved considerably, according to the emergency room physician. She describes a 2 day history of slowly progressive difficulty breathing, starting with a mildly productive cough, with onset of wheezing and significant worsening in her breathing effort over the past 24 hours. Subjective fever. Mild chest discomfort only with coughing or when her shortness of breath is at its worst. No chills. No nausea vomiting. No diarrhea or dysuria. Has never been intubated for respiratory difficulty. This is her third emergency room visit in 1 year. Very distant history of hospitalization for asthma exacerbation. Hospital Course Hospital Course: Patient was admitted to [facility] on telemetry. She was started on nebulizer treatments, steroids and broad spectrum antibiotic therapy. She improved quickly with present treatment. She has had no further wheezing today. She ambulated with nursing staff and maintained her oxygen saturations in the mid to high 90's. Physical Exam Vital Signs: Temp Pulse Resp BP Pulse Ox 98.5 F 100 14 103/62 100 10/30/16 03:52 10/30/16 08:39 10/30/16 08:39 10/30/16 03:52 10/30/16 08:39 Intake & Output 10/29/16 10/30/16 10/31/16 06:59 06:59 06:59 Intake Total 502 Balance 502 Weight 69.1 kg General appearance: PRESENT: no acute distress, well-developed, well-nourished Head exam: PRESENT: atraumatic, normocephalic Eye exam: PRESENT: conjunctiva pink, EOMI, PERRLA. ABSENT: scleral icterus Ear exam: PRESENT: normal external ear exam Mouth exam: PRESENT: moist, tongue midline Neck exam: ABSENT: carotid bruit, JVD, lymphadenopathy, thyromegaly Respiratory exam: PRESENT: clear to auscultation jorge, symmetrical, unlabored. ABSENT: rales, rhonchi, wheezes Cardiovascular exam: PRESENT: RRR. ABSENT: diastolic murmur, rubs, systolic murmur Pulses: PRESENT: normal dorsalis pedis pul Vascular exam: PRESENT: normal capillary refill GI/Abdominal exam: PRESENT: normal bowel sounds, soft. ABSENT: distended, guarding, mass, organolmegaly, rebound, tenderness Rectal exam: PRESENT: deferred Extremities exam: PRESENT: full ROM. ABSENT: calf tenderness, clubbing, pedal edema Neurological exam: PRESENT: alert, awake, oriented to person, oriented to place , oriented to time, oriented to situation, CN II-XII grossly intact. ABSENT: motor sensory deficit Psychiatric exam: PRESENT: appropriate affect, normal mood. ABSENT: homicidal ideation, suicidal ideation Skin exam: PRESENT: dry, intact, warm. ABSENT: cyanosis, rash Results Laboratory Results: 10/30/16 06:59 10/30/16 06:59 10/30/16 10/30/16 06:59 06:59 WBC 17.2 H RBC 4.81 Hgb 15.3 Hct 44.7 MCV 93 MCH 31.8 MCHC 34.2 RDW 12.8 Plt Count 260 Seg Neutrophils % 90.2 H Lymphocytes % 5.5 L Monocytes % 4.1 Eosinophils % 0.0 Basophils % 0.2 Absolute Neutrophils 15.5 H Absolute Lymphocytes 0.9 Absolute Monocytes 0.7 Absolute Eosinophils 0.0 Absolute Basophils 0.0 Sodium 140.9 Potassium 4.8 Chloride 108 H Carbon Dioxide 21 L Anion Gap 12 BUN 11 Creatinine 0.69 Est GFR ( Amer) > 60 Est GFR (Non-Af Amer) > 60 Glucose 104 Calcium 10.2 Impressions: Chest X-Ray 10/29/16 03:42 IMPRESSION: No acute cardiopulmonary findings. Qualifiers PATEINT BEING DISCHARGED WITH ANY OF THE FOLLOWING DIAGNOSIS?: No Plan Discharge Plan: Home with family Time Spent: Less than 30 Minutes
[2016-10-30 11:18] VITALS: BP 120/81
[2016-10-30] MEDS: FAMOTIDINE 20 MG TABLET PO SCH (11:22)
[2016-10-30] MEDS: ENOXAPARIN SODIUM INJ 40 MG/0.4 ML DISP.SYRIN SUBCUT SCH (11:23)
== END 2016-10-30 11:39 | disposition home or self-care (01) | DRG 202 ==
LOC: ER 03:28 → UNDOADMIN 06:13 → EH 06:13 → 3S 14:09
PROVIDERS: ADMIT Family Medicine; ATTEND Family Medicine
PROC: 5A09357 Assistance with Respiratory Ventilation, Less than 24 Consecutive Hours, Continuous Positive Airway Pressure (ICD-10-PCS; principal; 2016-10-29)
PROC: 3E0F73Z Introduction of Anti-inflammatory into Respiratory Tract, Via Natural or Artificial Opening (ICD-10-PCS; 2016-10-29)
DX: J45.41 Moderate persistent asthma with (acute) exacerbation (principal); J96.20 Acute and chronic respiratory failure, unspecified whether with hypoxia or hypercapnia; M06.9 Rheumatoid arthritis, unspecified; J01.90 Acute sinusitis, unspecified; F41.1 Generalized anxiety disorder; J20.9 Acute bronchitis, unspecified; F17.210 Nicotine dependence, cigarettes, uncomplicated; Z79.899 Other long term (current) drug therapy; Z88.1 Allergy status to other antibiotic agents; Z90.710 Acquired absence of both cervix and uterus; Z82.5 Family history of asthma and other chronic lower respiratory diseases
CPT/HCPCS: 36415; 36600; 71010; 80048; 80053; 82803; 83735; 84703; 85025; 85379; 93005; 93010; 94640; 94660; 94799; 96365; 96375; 99285; J1650; J1885; J2920; J2930; J3475; J3490; J7512; J7620

== ENCOUNTER 2017-01-08 08:00 | Outpatient (CLI) | payer OTHER, MEDICAID ==
[~2017-01-08 08:00] MED LIST: FERRIC CARBOXYMALTOSE 750 MG in NORMAL SALINE 250 ML IV PRN; NORMAL SALINE 250 ML IV PRN
[2017-01-08 09:10] VITALS: BP 127/90
== END 2017-01-08 09:30 | disposition home or self-care (01) ==
LOC: II 08:00 → 5TH 08:01 → II 09:30
PROVIDERS: ATTEND Internal Medicine
PROC: 3E033GC Introduction of Other Therapeutic Substance into Peripheral Vein, Percutaneous Approach (ICD-10-PCS; principal; 2017-01-08)
DX: D50.8 Other iron deficiency anemias (principal); K90.0 Celiac disease
CPT/HCPCS: 96367; J7050; J1439; 96365

== ENCOUNTER → 2017-02-25 | Outpatient (CLI) | payer OTHER, MEDICAID ==
--- NOTE | 2017-02-25 09:23 | RADIOLOGY REPORT (SQ) ---
EXAM DESCRIPTION: CT CHEST WITHOUT COMPLETED DATE/TIME: 02/25/2017 7:37 am REASON FOR STUDY: OTHER NONSPECIFIC FINDING OF LUNG FIELD (R91.8) R91.8 OTHER NONSPECIFIC ABNORMAL FINDING OF LUNG FIELD COMPARISON: 01/27/2017. TECHNIQUE: CT scan performed of the chest without intravenous contrast. Images reviewed with lung, soft tissue and bone windows. Reconstructed coronal and sagittal MPR images reviewed. All images st ored on PACS. All CT scanners at this facility use dose modulation, iterative reconstruction, and/or weight based d osing when appropriate to reduce radiation dose to as low as reasonably achievable (ALARA). [facility]: Dose Right [facility]: CareDose [facility]: Dose Right [facility]: Teradose 4D [facility]: Smart Technologies RADIATION DOSE: CT Rad equipment meets quality standard of care and radiation dose reduction techniq ues were employed. CTDIvol: 3.8 mGy. DLP: 147 mGy-cm. mGy. LIMITATIONS: No technical limitations. FINDINGS: LUNGS AND PLEURA: Minimal basilar scarring. Improved aeration with clearing of the previo usly seen ground-glass opacities. No masses, infiltrates, pneumothorax. No pleural effusions, calci fications. HILAR AND MEDIASTINAL STRUCTURES: No identified masses or abnormal nodes. No obvious aneurysm. HEART AND VASCULAR STRUCTURES: No aneurysm. No pericardial effusion. UPPER ABDOMEN: No significant findings. Limited exam. THYROID AND OTHER SOFT TISSUES: No masses. No adenopathy. BONES: No significant finding. HARDWARE: Breast implants. OTHER: No other significant findings. IMPRESSION: IMPROVED AERATION WITH CLEARING OF THE PREVIOUSLY SEEN GROUND-GLASS OPACITIES. NO SIGNI FICANT FINDING ON NON-CONTRASTED CHEST CT. TECHNICAL DOCUMENTATION: JOB ID: [id number] Quality ID # [id number]: Final reports with documentation of one or more dose reduction techniques (e.g., Au tomated exposure control, adjustment of the mA and/or kV according to patient size, use of iterative reconstruction technique) 2010 [employer]- All Rights Reserved
== END ==
LOC: RAD 07:23
PROVIDERS: ATTEND Family Medicine
DX: R91.8 Other nonspecific abnormal finding of lung field (principal)
CPT/HCPCS: 71250

== ENCOUNTER → 2017-03-03 | Outpatient (CLI) | payer OTHER, MEDICAID ==
--- NOTE | 2017-03-03 15:25 | WOMENS IMAGING REPORT ---
EXAM DESCRIPTION: BILAT SCREENING MAMMO W/CAD COMPLETED DATE/TIME: 03/03/2017 2:21 pm REASON FOR STUDY: ROUTINE SCREENING; Z12.31 Z12.31 ENCNTR SCREEN MAMMOGRAM FOR MALIGNANT NEOPLASM O F LEYDA COMPARISON: None. TECHNIQUE: Standard craniocaudal and mediolateral oblique views of each breast recorded using digita l acquisition. Additional "push-back" craniocaudal and mediolateral oblique images acquired. LIMITATIONS: None. FINDINGS: IMPLANTS: Bilateral subpectoral implants. Findings present which are benign by mammographic criteria. No suspicious masses, calcifications or architectural distortion. Read with the assistance of CAD. .[facility] - R2 Cenova Version 1.3 .[facility] Imaging - R2 Cenova Version 1.3 .[facility] Imaging - R2 Cenova Version 2.4 .[facility] - R2 Cenova Version 2.4 .[facility] - R2 Hydro Sprayer Operator Version 9.2 Benign mammographic findings may include one or more of the following: Smooth masses, popcorn/rim/co arse calcifications, asymmetries, post-procedure changes, and lesions with long-standing stability. IMPRESSION: BENIGN MAMMOGRAPHIC FINDINGS. BIRADS 2 BREAST DENSITY: b. There are scattered areas of fibroglandular density. BIRAD: 2 BENIGN FINDING(S) RECOMMENDATION: ROUTINE SCREENING COMMENT: The patient has been notified of the results by letter per MQSA requirements. Additional no tification policies are in place for contacting patient with suspicious or incomplete findings. Quality ID #[id number]: The [employer] recommends an annual screening mammogram for women aged 40 years or over. This facility utilizes a reminder system to ensure that all patients receive reminder letters, and/or direct phone calls for appointments. This includes reminders for routine scr eening mammograms, diagnostic mammograms, or other Breast Imaging Interventions when appropriate. Th is patient will be placed in the appropriate reminder system. The [employer] (ACR) has developed recommendations for screening MRI of the breast s in certain patient populations, to be used in conjunction with mammography. Breast MRI surveillanc e may be appropriate for women with more than 20% lifetime risk of developing breast cancer as deter mined by genetic testing, significant family history of the disease, or history of mantle radiation f or Hodgkins Disease. ACR Practice Guidelines 2008. TECHNICAL DOCUMENTATION: FINDING NUMBER: (1) ASSESSMENT: (1) JOB ID: [id number] [employer]- All Rights Reserved
== END ==
LOC: WI 14:00
PROVIDERS: ATTEND Family Medicine
DX: Z12.31 Encounter for screening mammogram for malignant neoplasm of breast (principal)
CPT/HCPCS: 77067; G0202

== ENCOUNTER 2017-07-15 12:22 | Emergency (ER) | payer OTHER, MEDICAID ==
--- NOTE | 2017-07-15 13:28 | RADIOLOGY REPORT (SQ) ---
EXAM DESCRIPTION: SACRUM AND COCCYX COMPLETED DATE/TIME: 07/15/2017 1:17 pm REASON FOR STUDY: FALL, PAIN COMPARISON: None. NUMBER OF VIEWS: Three views. TECHNIQUE: AP, lateral, and tilt views of the sacrum and coccyx. LIMITATIONS: None. FINDINGS: MINERALIZATION: Normal. BONES: No acute fracture or dislocation. No worrisome bone lesions. SOFT TISSUES: No soft tissue swelling. No foreign body. OTHER: No other significant finding. IMPRESSION: NEGATIVE STUDY OF THE SACRUM AND COCCYX. TECHNICAL DOCUMENTATION: JOB ID: [id number] [employer]- All Rights Reserved Reading location - IP/workstation name: [facility]-[email or web address]
--- NOTE | 2017-07-15 13:30 | RADIOLOGY REPORT (SQ) ---
EXAM DESCRIPTION: L SPINE WHOLE COMPLETED DATE/TIME: 07/15/2017 1:23 pm REASON FOR STUDY: FALL, PAIN COMPARISON: None. NUMBER OF VIEWS: Five views including obliques. TECHNIQUE: AP, lateral, oblique, and sacral radiographic images acquired of the lumbar spine. LIMITATIONS: None. FINDINGS: MINERALIZATION: Normal. SEGMENTATION: Normal. No transitional anatomy. ALIGNMENT: Normal. VERTEBRAE: Maintained height. No fracture or worrisome bone lesion. DISCS: Preserved height. No significant osteophytes or end plate irregularity. POSTERIOR ELEMENTS: Pedicles and facets are intact. No pars defect or posterior arch defects. HARDWARE: None in the spine. PARASPINAL SOFT TISSUES: Normal. PELVIS: Intact as visualized. No fractures or worrisome bone lesions. SI joints intact. OTHER: No other significant finding. IMPRESSION: NORMAL 5 VIEW LUMBAR SPINE. TECHNICAL DOCUMENTATION: JOB ID: [id number] [employer]- All Rights Reserved Reading location - IP/workstation name: [email or web address]
[2017-07-15] MEDS ORDERED: TRAMADOL HCL 50 MG TABLET PO ONE (13:59)
--- NOTE | 2017-07-15 14:11 | ER Document Report ---
ED Fall - General Chief Complaint: Fall Injury Stated Complaint: FALL/TAILBONE PAIN Time Seen by Provider: 07/15/17 12:44 Mode of Arrival: Ambulatory Information source: Patient TRAVEL OUTSIDE OF THE [place] IN LAST 30 DAYS: No - HPI Patient complains to provider of: FALL Occurred: Yesterday Notes: Patient is here with complaints of pain after fall. She states she was walking down the steps at her house into her garage when the cat came up the steps tripping her causing her to fall onto her right elbow and her buttocks. She is now complaining of pain in her tailbone area as well as her right elbow. She states that she did strike her head, but denies any loss of consciousness. She complains of a mild headache. She is on no blood thinning medications. She denies any blurred or loss vision. She denies any numbness, tingling, weakness. No bowel or bladder dysfunction. No nausea, vomiting, diarrhea. She denies any neck pain. She has full range of motion of the right elbow but has pain to some bruised areas. No dysuria or hematuria. No rash. She denies any other injuries or other complaints at this time. Pain is worse with sitting , better when lying on her side. - Related data Allergies/Adverse Reactions: cephalexin monohydrate [From Keflex] Allergy (Intermediate, Verified 07/15/17 12 :27) rash Past Medical History - Social History Smoking Status: Current Every Day Smoker Chew tobacco use (# tins/day): No Frequency of alcohol use: Occasional Drug Abuse: None Family History: Reviewed & Not Pertinent Patient has suicidal ideation: No Patient has homicidal ideation: No - Past Medical History Cardiac Medical History: Denies: Hx Atrial Fibrillation, Hx Congestive Heart Failure, Hx Coronary Artery Disease, Hx DVT, Hx Heart Attack, Hx Hypercholesterolemia, Hx Hypertension, Hx Pulmonary Embolism Pulmonary Medical History: Reports: Hx Asthma Denies: Hx Bronchitis, Hx COPD, Hx Pneumonia, Hx Sleep Apnea Neurological Medical History: Denies: Hx Cerebrovascular Accident, Hx Seizures Endocrine Medical History: Denies: Hx Diabetes Mellitus Type 1, Hx Diabetes Mellitus Type 2, Hx Hyperthyroidism, Hx Hypothyroidism Renal/ Medical History: Denies: Hx Peritoneal Dialysis GI Medical History: Denies: Hx Cirrhosis, Hx Gastroesophageal Reflux Disease, Hx Hepatitis Musculoskeltal Medical History: Reports Hx Arthritis - Rheumatoid Psychiatric Medical History: Denies: Hx Depression Infectious Medical History: Denies: Hx Hepatitis Past Surgical History: Reports: Hx Hysterectomy - Immunizations Hx Diphtheria, Pertussis, Tetanus Vaccination: Yes Review of Systems - Review of Systems -: Yes All other systems reviewed and negative Physical Exam - Vital signs Vitals: Temp Pulse Resp BP Pulse Ox 99.6 F 108 H 16 122/90 H 97 07/15/17 12:07/15/17 12:07/15/17 12:07/15/17 12:07/15/17 12:26 - Notes Notes: GENERAL: alert, cooperative, nontoxic, no distress. HEAD: normocephalic, atraumatic EYES: conjunctiva pink without discharge, no external redness or swelling. PERRL , EOM'S INTACT EARS: no external swelling, no external redness. No hemotympanum EM NOSE: atraumatic, no external swelling. No bleeding MOUTH/THROAT: mucous membranes moist and pink, posterior pharynx without erythema, swelling, exudate. No trismus or drooling. NECK: soft, supple, full range of motion, no meningismus. No midline tenderness step-offs or crepitus to palpation of the cervical spine. CHEST: no distress, lungs clear and equal throughout. No wheezing, rales, rhonchi. CARDIAC: regular rate and rhythm, no murmur, normal capillary refill, normal pulses. No peripheral edema noted. ABDOMEN: Soft, nontender. No ecchymosis. BACK: full range of motion, no CVA tenderness. Tenderness to palpation of the lumbar midline spine, sacrum, coccyx. No step-offs or crepitus. EXTREMITIES: full range of motion of all extremities. No redness, no swelling. Ecchymosis to the right elbow. Tenderness to the ecchymotic areas, but no tenderness to the olecranon or other bony structures. Full flexion and extension of the elbow. Normal wrist and shoulder exam. Normal pulse and sensation distally. Skin is intact. NEURO: alert and oriented x 3, no focal deficits, full range of motion of all extremities. Cranial nerves II through XII are grossly intact. Reflexes are normal bilaterally. Normal sensation bilaterally. Normal strength bilaterally. PYSCH: appropriate mood, affect. Patient is cooperative. SKIN: pink, warm, dry, no rash. Course - Re-evaluation Re-evalutation: 07/15/17 14:07 Patient is nontoxic appearing with stable vitals. She slipped going down her steps and fell landing on her right elbow her coccyx and hitting her head. This happened last evening. She is on no blood thinners. No loss of consciousness. She denies any sick significant head injury complaints. She has a nonfocal neurological exam at this time. I do not believe that CT imaging of the head is required at this time as this was not a high mechanism of injury, she had no LOC, no vomiting, has a normal neurological exam and is on no blood thinning occasions. Patient agrees with this. She has no neck tenderness on exam. She has no bowel or bladder dysfunction or signs of cauda equina, epidural abscess/bleed. X-rays of the lumbar spine and sacrum as well as coccyx show no acute fractures per the radiologist. One of the images from the elbow x-rays would not transfer for the radiologist to look at, at the time of this dictation I did not appreciate any obvious signs of fracture on the elbow films that could be visualized. Patient has full range of motion of the elbow and no significant bone tenderness on exam. I offered to let him wait until the images are read by the radiologist were they could go home at this point and I will check the results of the x-ray later today. If the x-ray results are positive, they will need to return the emergency department for splinting. They state that they would rather go home at this time in follow-up if they need to. The patient has no other significant signs of injury or trauma. She will be given a dose of tramadol here in emergency department I will discharge her home with a small supply tramadol she can take as needed for pain. She is also instructed to take Tylenol Motrin as needed for pain as well. She is instructed to sit on a donut pillow. Follow-up if not better in 1 week, sooner for increasing pain, fever, numbness, tingling, weakness, bowel or bladder dysfunction, or for any further concerns. The patient is noted to have elevated blood pressure during today's emergency department visit. The patient was informed of this finding. The patient was instructed that this may be related to pre-hypertension and requires further evaluation with a primary care provider. The patient has no hypertensive symptoms at this time. The patient's emergency department workup and current diagnosis were explained to the patient and or family. Follow-up instructions were provided. Medications if prescribed were discussed. Instructions for when to return to the emergency department including specific worrisome symptoms were discussed with the patient and/or family. - Vital Signs Vital signs: Temp Pulse Resp BP Pulse Ox 99.6 F 108 H 16 122/90 H 97 07/15/17 12:07/15/17 12:07/15/17 12:07/15/17 12:07/15/17 12:26 - Diagnostic Test Radiology reviewed: Image reviewed, Reports reviewed - Lumbar spine and sacrum and coccyx negative. Currently pending x-ray results of the right elbow. Discharge - Discharge Clinical Impression: Lumbar contusion Qualifiers: Encounter type: initial encounter Qualified Code(s): S30.0XXA - Contusion of lower back and pelvis, initial encounter Contusion of right elbow Qualifiers: Encounter type: initial encounter Qualified Code(s): S50.01XA - Contusion of right elbow, initial encounter Condition: Stable Disposition: HOME, SELF-CARE Instructions: Coccyx Injury ([facility]), Contusion ([facility]), Low Back Pain ([facility]) Additional Instructions: Tylenol Motrin as needed for pain. Take pain medication as prescribed. Apply ice to sore areas. Follow-up if not better in 1 week, sooner for increasing pain, fever, numbness, tingling, weakness, bowel or bladder dysfunction, persistent vomiting, severe headache, blurred or loss vision, or for any further concerns. Prescriptions: Hydrocodone/Acetaminophen [Morris 5-325 mg Tablet] 1 tab PO Q6H PRN #6 tab PRN Reason: Forms: Elevated Blood Pressure, Smoking Cessation Education Referrals: [facility] [Provider Group] - Follow up as needed
--- NOTE | 2017-07-15 14:14 | RADIOLOGY REPORT (SQ) ---
EXAM DESCRIPTION: ELBOW RIGHT OVER 2 VIEWS COMPLETED DATE/TIME: 07/15/2017 1:17 pm REASON FOR STUDY: FALL, PAIN COMPARISON: None. NUMBER OF VIEWS: Four views. TECHNIQUE: AP, lateral, and both oblique radiographic images acquired of the right elbow. LIMITATIONS: None. FINDINGS: MINERALIZATION: Normal. BONES: No acute fracture or dislocation. No worrisome bone lesions. JOINT: No effusion. SOFT TISSUES: No soft tissue swelling. No foreign body. OTHER: No other significant finding. IMPRESSION: NEGATIVE STUDY OF THE RIGHT ELBOW. NO RADIOGRAPHIC EVIDENCE OF ACUTE INJURY. TECHNICAL DOCUMENTATION: JOB ID: [id number] [employer] [place]- All Rights Reserved Reading location - IP/workstation name: [email or web address]
[2017-07-15] MEDS ORDERED: HYDROCODONE/ACETAMINOPHEN 5-325 MG TABLET PO ONE (14:15)
[2017-07-15 14:22] VITALS: BP 110/70
== END 2017-07-15 14:24 | disposition home or self-care (01) ==
LOC: ER 12:22
DX: S30.0XXA Contusion of lower back and pelvis, initial encounter (principal); S50.01XA Contusion of right elbow, initial encounter; M25.521 Pain in right elbow; R51 Headache; M53.3 Sacrococcygeal disorders, not elsewhere classified; W10.9XXA Fall (on) (from) unspecified stairs and steps, initial encounter; F17.200 Nicotine dependence, unspecified, uncomplicated; J45.909 Unspecified asthma, uncomplicated
CPT/HCPCS: 72110; 72220; 99283

== ENCOUNTER 2017-11-18 09:02 | Day surgery (SDC) | payer OTHER, MEDICAID ==
[2017-11-11 09:34] LABS: HEMOGLOBIN 16.3 g/dL (12.0-15.5); MEAN CORPUSCULAR HEMOGLOBIN 32.9 pg (27.0-33.4); MEAN CORPUSCULAR HGB CONC 35.5 g/dL (32.0-36.0); MEAN CORPUSCULAR VOLUME 93 fl (80-97); PLATELET COUNT 213 10^3/uL (150-450); RED BLOOD COUNT 4.97 10^6/uL (3.72-5.28); RED CELL DISTRIBUTION WIDTH 13.2 % (11.5-14.0); WHITE BLOOD COUNT 6.2 10^3/uL (4.0-10.5)
[2017-11-11 09:58] LABS: ANION GAP 13 (5-19); BLOOD UREA NITROGEN 8 mg/dL (7-20); CALCIUM 9.9 mg/dL (8.4-10.2); CARBON DIOXIDE 23 mmol/L (22-30); CHLORIDE 108 mmol/L (98-107); GLUCOSE 88 mg/dL (75-110); SODIUM 143.7 mmol/L (137-145)
--- NOTE | 2017-11-11 12:42 | RADIOLOGY REPORT (SQ) ---
EXAM DESCRIPTION: CHEST PA/LATERAL COMPLETED DATE/TIME: 11/11/2017 9:29 am REASON FOR STUDY: SOB COMPARISON: None. EXAM PARAMETERS: NUMBER OF VIEWS: two views TECHNIQUE: Digital Frontal and Lateral radiographic views of the chest acquired. RADIATION DOSE: NA LIMITATIONS: none FINDINGS: LUNGS AND PLEURA: No opacities, masses or pneumothorax. No pleural effusion. MEDIASTINUM AND HILAR STRUCTURES: No masses or contour abnormalities. HEART AND VASCULAR STRUCTURES: Heart normal size. No evidence for failure. BONES: No acute findings. HARDWARE: None in the chest. OTHER: No other significant finding. IMPRESSION: NO SIGNIFICANT RADIOGRAPHIC FINDING IN THE CHEST. TECHNICAL DOCUMENTATION: JOB ID: [id number] [employer]- All Rights Reserved Reading location - IP/workstation name: [email or web address]
--- NOTE | 2017-11-15 13:00 | EKG REPORT ---
SEVERITY:- NORMAL ECG - SINUS RHYTHM : Confirmed by: Thaddeus Dockery MD 15-Nov-2017 12:59:55
[~2017-11-18 09:02] MED LIST changes: +DEXAMETHASONE SOD PHOSPHATE INJ 4 MG/1 ML VIAL ONE; -FERRIC CARBOXYMALTOSE 750 MG in NORMAL SALINE 250 ML IV PRN; +LACTATED RINGERS 1000 ML IV PRN; +LIDOCAINE 0.5% INJ-PF (5 MG/ML) 50 ML SDV SUBCUT PRN; +METRONIDAZOLE 500 MG/NS RTU 500 MG/100 ML RTUPB IV PRN; -NORMAL SALINE 250 ML IV PRN; +ONDANSETRON HCL INJ/PF 4 MG/2 ML SDV ONE; +SUCCINYLCHOLINE CHLORIDE INJ 200 MG/10 ML VIAL ONE
[2017-11-18] MEDS ORDERED: ALBUTEROL SULFATE 0.083% NEB 2.5 MG/3 ML AMPUL NEB ONE (10:31)
[2017-11-18] MEDS ORDERED: PROPOFOL INJ 200 MG/20 ML VIAL IV ONE (10:33)
[2017-11-18] MEDS ORDERED: ACETAMINOPHEN 1,000 MG/100 ML RTUPB IV ONE (10:33)
[2017-11-18] MEDS ORDERED: FENTANYL CITRATE INJ/PF 100 MCG/2 ML AMPUL ONE ×2 (10:33)
[2017-11-18] MEDS ORDERED: MIDAZOLAM 2 MG/2 ML INJ ONE (10:33)
[2017-11-18] MEDS ORDERED: LIDOCAINE 2% JELLY 30 ML TUBE ONE (10:34)
[2017-11-18] MEDS ORDERED: BACITRACIN ZINC OINTMENT 15 GM ONE (10:34)
[2017-11-18] MEDS ORDERED: BUPIVACAINE INJ/PF LIPOSOME/PF 266 MG/20 ML SDV ONE (10:35)
[2017-11-18] MEDS ORDERED: FENTANYL CITRATE INJ/PF 100 MCG/2 ML AMPUL IV PRN ×3 (11:36)
[2017-11-18] MEDS ORDERED: PROMETHAZINE HCL INJ 25 MG/1 ML VIAL IV PRN (11:36)
[2017-11-18] MEDS ORDERED: DIPHENHYDRAMINE HCL 50 MG/ML VIAL IV PRN (11:36)
[2017-11-18] MEDS ORDERED: PROMETHAZINE HCL INJ 25 MG/1 ML VIAL ONE (11:53)
[2017-11-18] MEDS: FENTANYL CITRATE INJ/PF 100 MCG/2 ML AMPUL ONE ×2 (12:05→12:15)
[2017-11-18] MEDS ORDERED: HYDROCODONE/ACETAMINOPHEN 10-325 MG TABLET ONE (13:03)
[2017-11-18 14:03] VITALS: BP 112/77
--- NOTE | 2017-11-19 09:48 | Discharge Summary ---
Discharge Summary (SDC) - Discharge Final Diagnosis: Thrombosed internal and external hemorrhoids Date of Surgery: 11/18/17 Discharge Date: 11/18/17 Condition: Stable Forms: ASU Anesthesia D/C Instruction, Discharge POC-Surgical Service Treatment or Instructions: DIET TOLERATED. NON-STRENUOUS ACTIVITY. FOLLOW-UP IN 7-10 DAYS SITZ BATHS IN WARM, SOAPY WATER TWO TIMES A DAY AND AFTER BOWEL MOVEMENTS TAKE A FIBER SUPPLEMENT TWO TIMES A DAY TAKE 2 TABS OF A STOOL SOFTENER, TWO TIMES A DAY USE THE 5% LIDOCAINE OINTMENT TO RECTUM THREE TIMES A DAY NEOSPORIN TO RECTUM THREE TIMES A DAY. IBUPROFEN 800MG BY MOUTH 3 TIMES A DAY WITH MEALS NORCO 10/325MG EVERY 6 HOURS NEEDED FOR PAIN Referrals: ROSAMARIA RICKETTS MD [ACTIVE STAFF] - 11/30/17 11:00 am Discharge Diet: As Tolerated Respiratory Treatments at Home: Deep Breathing/Coughing, Incentive Spirometer Discharge Activity: Balance Activity w/Rest, Energy Conservation, No Lifting Over 10 Pounds, No Lifting/Push/Pulling, Pelvic Rest, Slowly Increase Activity Home Care Assistance: None Needed Report the Following to Your Physician Immediately: Nausea, Vomiting, Increase in Pain, Fever over 101 Degrees, Unusual Bleeding, Increased Soreness, Drainage- Yellow, Drainage-Green, Large Clots, IV Site Infection Signs, Urinary Infection Signs
--- NOTE | 2017-11-19 09:58 | Operative Report ---
Nonrecallable Operative Report DATE OF SURGERY: 11/18/17 PREOPERATIVE DIAGNOSIS: Thrombosed internal and external hemorrhoids POSTOPERATIVE DIAGNOSIS: Same as above OPERATION: 1. Single column internal and external surgical hemorrhoidectomy. 2. Rubber band ligation of internal hemorrhoids 3 SURGEON: ROSAMARIA RICKETTS ANESTHESIA: GA TISSUE REMOVED OR ALTERED: Right posterior hemorrhoid: COMPLICATIONS: None apparent ESTIMATED BLOOD LOSS: Minimal PROCEDURE: Drains/implants: None. Procedure in detail: After informed consent was obtained, the patient was brought into the operating room and laid in the prone jackknife position. The area of the rectum was prepped and draped in a normal sterile fashion. An anal block was created with Exparel. A Hill-Mariscal retractor was inserted into the rectum. The patient had hemorrhoids in the internal and external position, worse in the right posterior column. The patient had a history of previous hemorrhoid resection. Only one column was resected, in order to preserve as much anoderm as possible. The right posterior hemorrhoid column was excised using Bovie electrocautery. This was done with great care, so as to maintain the integrity of the sphincter complex. The defect was then closed using 3-0 chromic suture in simple running fashion. Great care was taken to reapproximate mucosa to mucosa, anoderm to anoderm, and skin to skin. Once this was completed, the remaining hemorrhoid columns were inspected. Patient had enlarged, internal, prolapsing hemorrhoids in the left lateral and right anterior positions. The rubber band ligation device was used to ligate the hemorrhoids in the right anterior and left lateral positions. This was done 3. After this was completed, the procedure was concluded. All sponge, instrument, and needle counts were correct 2. Condition: Stable.
== END 2017-11-18 14:05 | disposition home or self-care (01) ==
LOC: OROUT 09:02
PROVIDERS: ATTEND Surgery
DX: K64.5 Perianal venous thrombosis (principal); J45.909 Unspecified asthma, uncomplicated; F17.210 Nicotine dependence, cigarettes, uncomplicated; Z88.3 Allergy status to other anti-infective agents; Z79.51 Long term (current) use of inhaled steroids; Z79.899 Other long term (current) drug therapy; Z01.818 Encounter for other preprocedural examination
CPT/HCPCS: 93005; 36415; 85027; 80048; 88305 ×2; 71046; 93010; 46255; J2250; J3490; J1100; J3010; J2550; J0330; J2405; J2704; J0131; C9290; 902

== ENCOUNTER 2018-02-15 11:36 | Emergency (ER) | payer OTHER, MEDICAID ==
[2018-02-15 11:40] VITALS: BP 159/98
[2018-02-15] MEDS ORDERED: OXYCODONE-ACETAMINOPHEN 5-325 MG TABLET PO ONE (12:19)
[2018-02-15] MEDS ORDERED: LIDOCAINE 5% (700 MG) TRANSDERMAL ADH..PATCH TP ONE (12:19)
[2018-02-15] MEDS ORDERED: PREDNISONE 20 MG TABLET PO ONE (12:20)
[2018-02-15] MEDS ORDERED: IPRATROPIUM/ALBUTEROL 0.5-2.5 MG/3 ML AMPUL NEB ONE (12:20)
--- NOTE | 2018-02-15 12:25 | ER Document Report ---
HPI - HPI Patient complains to provider of: Back pain, cough Time Seen by Provider: 02/15/18 12:06 Onset/Duration: Persistent Quality of pain: Achy Pain Level: 3 Context: Patient presents stating that while she was in the shower yesterday she leaned back and developed left-sided back and neck pain. Patient states that anytime she moves her head now she has increased pain. Patient also reports cough for the past 3-4 days with sinus congestion. Patient denies any fever or history of IV drug use. Associated Symptoms: Nonproductive cough, Other - Left-sided back and neck pain. denies: Fever, Headache, Nausea, Vomiting Exacerbated by: Movement Relieved by: Remaining still Similar symptoms previously: No Recently seen / treated by doctor: No - ROS ROS below otherwise negative: Yes Systems Reviewed and Negative: Yes All other systems reviewed and negative - CONSTITUTIONAL Constitutional: DENIES: Fever, Chills - EENT EENT: DENIES: Sore Throat, Congestion - NEURO Neurology: DENIES: Headache - CARDIOVASCULAR Cardiovascular: DENIES: Chest pain - RESPIRATORY Respiratory: REPORTS: Coughing. DENIES: Trouble Breathing - GASTROINTESTINAL Gastrointestinal: DENIES: Nausea, Patient vomiting - REPRODUCTIVE Reproductive: DENIES: : - MUSCULOSKELETAL Musculoskeletal: REPORTS: Back Pain, Neck Pain. DENIES: Extremity pain - DERM Skin Color: Normal Skin Problems: None Past Medical History - General Information source: Patient - Social History Smoking Status: Current Every Day Smoker Smoking Education Provided: Yes Frequency of alcohol use: None Drug Abuse: None Occupation: Cnc Technician Lives with: Family Family History: Reviewed & Not Pertinent - Past Medical History Cardiac Medical History: Reports: Hx DVT Pulmonary Medical History: Reports: Hx Asthma Neurological Medical History: Denies: Hx Cerebrovascular Accident, Hx Seizures Renal/ Medical History: Denies: Hx Peritoneal Dialysis GI Medical History: Denies: Hx Cirrhosis, Hx Gastroesophageal Reflux Disease, Hx Hepatitis Musculoskeletal Medical History: Reports Hx Arthritis - Rheumatoid Psychiatric Medical History: Denies: Hx Depression Infectious Medical History: Denies: Hx Hepatitis Past Surgical History: Reports: Hx Section, Hx Hysterectomy, Hx Orthopedic Surgery - Immunizations Hx Diphtheria, Pertussis, Tetanus Vaccination: Yes Vertical Provider Document - CONSTITUTIONAL Agree With Documented VS: Yes Exam Limitations: No Limitations General Appearance: WD/WN, No Apparent Distress - INFECTION CONTROL TRAVEL OUTSIDE OF THE [place] IN LAST 30 DAYS: No - HEENT HEENT: Atraumatic, Normal ENT Exam, Normocephalic - NECK Neck: Supple. negative: Lymphadenopathy-Left, Lymphadenopathy-Right Notes: Left trapezius muscle tenderness with spasm, no cervical midline tenderness step -off or deformity, no meningismus - RESPIRATORY Respiratory: No Respiratory Distress, Chest Non-Tender, Wheezing - CARDIOVASCULAR Cardiovascular: Regular Rate, Regular Rhythm, No Murmur - BACK Back: Abnormal Inspection - Left trapezius muscle tenderness. negative: CVA Tenderness-Right, CVA Tenderness-Left - MUSCULOSKELETAL/EXTREMETIES Musculoskeletal/Extremeties: MAEW, FROM, Non-Tender - NEURO Level of Consciousness: Awake, Alert, Appropriate Motor/Sensory: No Motor Deficit - DERM Integumentary: Warm, Dry, No Rash Course - Re-evaluation Re-evalutation: 02/15/18 12:21 Patient with left trapezius muscle spasm, without signs of spinal cord compression, cauda equina syndrome, infection, aneurysm, or other serious etiology. The patient is neurologically intact. Given the extremely risk of these diagnoses further testing and evaluation for these possibilities does not appear to be indicated at this time. Patient has been instructed to return if the symptoms worsen or change in any way. - Vital Signs Vital signs: Temp Pulse Resp BP Pulse Ox 98.6 F 82 18 159/98 H 98 02/15/18 11:39 02/15/18 11:39 02/15/18 11:39 02/15/18 11:39 02/15/18 11:39 Discharge - Discharge Clinical Impression: Trapezius muscle spasm Asthma exacerbation Qualifiers: Asthma severity: unspecified severity Asthma persistence: unspecified Qualified Code(s): J45.901 - Unspecified asthma with (acute) exacerbation Condition: Stable Disposition: HOME, SELF-CARE Instructions: Asthma ([facility]), Inhaled Bronchodilators ([facility]), Muscle Relaxers ([facility] ), Muscle Strain ([facility]), Steroid Medication Additional Instructions: Return immediately for any new or worsening symptoms Followup with your primary care provider, call tomorrow to make a followup appointment Do not take your Klonopin if you are taking your muscle relaxer Prescriptions: Albuterol Sulfate [Proair Hfa Inhalation Aerosol 8.5 gm Mdi] 2 puff IH Q4 PRN # 1 mdi PRN Reason: Metaxalone [Skelaxin 800 mg Tablet] 800 mg PO ASDIR PRN #15 tablet PRN Reason: Prednisone [Deltasone 20 mg Tablet] 3 tab PO DAILY 4 Days tablet Forms: Smoking Cessation Education, Return to Work Referrals: MELISSA HODGES DO [Primary Care Provider] - Follow up tomorrow
== END 2018-02-15 12:25 | disposition home or self-care (01) ==
LOC: ER 11:36
DX: M62.830 Muscle spasm of back (principal); J45.901 Unspecified asthma with (acute) exacerbation; R05 Cough; M54.2 Cervicalgia; F17.200 Nicotine dependence, unspecified, uncomplicated; Z86.718 Personal history of other venous thrombosis and embolism; Z90.710 Acquired absence of both cervix and uterus
CPT/HCPCS: 94640; 99283; J7512; J7620

== ENCOUNTER 2018-03-31 10:25 | Emergency (ER) | payer OTHER, MEDICAID ==
--- NOTE | 2018-03-31 11:05 | ER Document Report ---
ED Medical Screen (RME) - General Chief Complaint: Abdominal Pain Stated Complaint: BLOOD IN STOOL/ABDOMINAL PAIN Time Seen by Provider: 03/31/18 11:00 Notes: 42 years old female presents today with rectal bleed and lower abdominal pain. Been going on for the last 2 days. Has a history of hemorrhoid and had hemorrhoid surgery done prior to this. Abdomen slightly tender. Conjunctivae is on normal TRAVEL OUTSIDE OF THE [place] IN LAST 30 DAYS: No - Related Data Allergies/Adverse Reactions: cephalexin monohydrate [From Keflex] Allergy (Intermediate, Verified 03/31/18 10:28) rash Past Medical History - Social History Chew tobacco use (# tins/day): No Frequency of alcohol use: Rare Drug Abuse: None - Past Medical History Cardiac Medical History: Reports: Hx DVT Denies: Hx Atrial Fibrillation, Hx Congestive Heart Failure, Hx Coronary Artery Disease, Hx Heart Attack, Hx Hypercholesterolemia, Hx Hypertension, Hx Pulmonary Embolism Pulmonary Medical History: Reports: Hx Asthma Denies: Hx Bronchitis, Hx COPD, Hx Pneumonia, Hx Sleep Apnea Neurological Medical History: Denies: Hx Cerebrovascular Accident, Hx Seizures Endocrine Medical History: Denies: Hx Diabetes Mellitus Type 1, Hx Diabetes Mellitus Type 2, Hx Hyperthyroidism, Hx Hypothyroidism Renal/ Medical History: Denies: Hx Peritoneal Dialysis GI Medical History: Denies: Hx Cirrhosis, Hx Gastroesophageal Reflux Disease, Hx Hepatitis Musculoskeltal Medical History: Reports Hx Arthritis - Rheumatoid Psychiatric Medical History: Denies: Hx Depression Infectious Medical History: Denies: Hx Hepatitis Past Surgical History: Reports: Hx Section - 1, Hx Hysterectomy, Hx Orthopedic Surgery - R knee - Immunizations Hx Diphtheria, Pertussis, Tetanus Vaccination: Yes History of Influenza Vaccine for 12/2016 - 05/2017 Season: No Physical Exam - Vital signs Vitals: Temp Pulse Resp BP Pulse Ox 98.8 F 96 20 143/82 H 100 03/31/18 10:30 03/31/18 10:30 03/31/18 10:30 03/31/18 10:30 03/31/18 10:30 Course - Vital Signs Vital signs: Temp Pulse Resp BP Pulse Ox 98.8 F 96 20 143/82 H 100 03/31/18 10:30 03/31/18 10:30 03/31/18 10:30 03/31/18 10:30 03/31/18 10:30 Doctor's Discharge - Discharge Referrals: MELISSA HODGES DO [Primary Care Provider] - Follow up as needed
--- NOTE | 2018-03-31 11:49 | RADIOLOGY REPORT (SQ) ---
EXAM DESCRIPTION: KUB/ABDOMEN (SINGLE VIEW) COMPLETED DATE/TIME: 03/31/2018 11:40 am REASON FOR STUDY: Abdominal pain COMPARISON: None. NUMBER OF VIEWS: One view. TECHNIQUE: Supine radiographic image of the abdomen acquired. LIMITATIONS: None. FINDINGS: BOWEL GAS PATTERN: Normal bowel gas pattern. No dilated loops. CALCIFICATIONS: No suspicious calcifications. SOFT TISSUES: No gross mass or suggestion of organomegaly. HARDWARE: None. BONES: No bone lesions or fracture. OTHER: No other significant finding. IMPRESSION: NO RADIOGRAPHIC EVIDENCE FOR ACUTE ABDOMINAL DISEASE. Reading location - IP/workstation name: [email or web address]
[2018-03-31 12:01] LABS: ABSOLUTE BASOPHILS # (AUTO) 0.1 10^3/uL (0.0-0.2); ABSOLUTE EOSINOPHILS # (AUTO) 0.2 10^3/uL (0.0-0.6); ABSOLUTE LYMPHOCYTES (AUTO) 1.8 10^3/uL (0.5-4.7); ABSOLUTE MONOCYTES (AUTO) 0.5 10^3/uL (0.1-1.4); ABSOLUTE NEUT (AUTO) 5.1 10^3/uL (1.7-8.2); EOSINOPHILS % (AUTO) 2.5 % (0-6); HEMOGLOBIN 17.1 g/dL (12.0-15.5); LYMPHOCYTES % (AUTO) 23.4 % (13-45); MEAN CORPUSCULAR HEMOGLOBIN 32.5 pg (27.0-33.4); MEAN CORPUSCULAR HGB CONC 34.9 g/dL (32.0-36.0); MEAN CORPUSCULAR VOLUME 93 fl (80-97); MONOCYTES % (AUTO) 6.2 % (3-13); PLATELET COUNT 213 10^3/uL (150-450); RED BLOOD COUNT 5.27 10^6/uL (3.72-5.28); SEGMENTED NEUTROPHILS % (AUTO) 66.9 % (42-78); TOTAL CELLS COUNTED % (AUTO) 100 %; WHITE BLOOD COUNT 7.6 10^3/uL (4.0-10.5)
[2018-03-31 12:18] LABS: ALANINE AMINOTRANSFERASE 38 U/L (9-52); ALBUMIN 5.1 g/dL (3.5-5.0); ALKALINE PHOSPHATASE 98 U/L (38-126); ANION GAP 9 (5-19); ASPARTATE AMINO TRANSFERASE 28 U/L (14-36); BILIRUBIN,DIRECT 0.2 mg/dL (0.0-0.4); BILIRUBIN,TOTAL 0.5 mg/dL (0.2-1.3); BLOOD UREA NITROGEN 9 mg/dL (7-20); CARBON DIOXIDE 25 mmol/L (22-30); CHLORIDE 105 mmol/L (98-107); GLUCOSE 90 mg/dL (75-110); POTASSIUM 4.1 mmol/L (3.6-5.0); SODIUM 139.2 mmol/L (137-145); TOTAL PROTEIN 7.7 g/dL (6.3-8.2)
--- NOTE | 2018-03-31 13:07 | ER Document Report ---
ED General - General Chief Complaint: Abdominal Pain Stated Complaint: BLOOD IN STOOL/ABDOMINAL PAIN Time Seen by Provider: 03/31/18 11:00 TRAVEL OUTSIDE OF THE [place] IN LAST 30 DAYS: No - HPI Notes: Patient is a 42-year-old female that presents to the emergency department for chief complaint of rectal bleeding. Patient noticed bright red blood in her bowel movement today. She denied any pain with the bowel movement. She states there were no blood clots. This happened twice this morning but only with bowel movements. She denies any nausea, vomiting, diarrhea, abdominal pain, fevers and chills. She had internal hemorrhoid banding and external hemorrhoids surgery 6 months ago and states she has not had any issues since. Past Medical History: Hemorrhoids Past Surgical History: Reviewed in chart Social History: Reviewed in chart Family History: Reviewed and noncontributory for presenting illness Allergies: Reviewed, see documented allergy list. REVIEW OF SYSTEMS: CONSTITUTIONAL : No fever No chills No diaphoresis No recent illness EENT: No vision changes No congestion No sore throat CARDIOVASCULAR: No chest pain No palpitations RESPIRATORY: No shortness of breath No cough No difficulty breathing GASTROINTESTINAL: No abdominal pain No nausea No vomiting No diarrhea Blood in stool GENITOURINARY: No dysuria No hematuria No difficulty urinating MUSCULOSKELETAL: No back pain No leg pain No arm pain SKIN: No rashes No lesions LYMPHATIC: No swollen, enlarged glands. NEUROLOGICAL: No lightheadedness No headache No weakness No paresthesias PSYCHIATRIC: No anxiety No depression PHYSICAL EXAMINATION: Vital signs reviewed, nursing noted reviewed. GENERAL: Well-appearing, well-nourished and in no acute distress. HEAD: Atraumatic, normocephalic. EYES: Eyes appear normal, extraocular movements intact, sclera anicteric, con junctiva are normal. ENT: nares patent, oropharynx clear without exudates. Moist mucous membranes. NECK: Normal range of motion, supple without lymphadenopathy LUNGS: Breath sounds clear to auscultation bilaterally and equal. No wheezes rales or rhonchi. HEART: Regular rate and rhythm without murmurs ABDOMEN: Soft, nontender, normoactive bowel sounds. No rebound, guarding, or rigidity. No masses appreciated. EXTREMITIES: Nontender, good range of motion, no pitting or edema. NEUROLOGICAL: No focal neurological deficits. Moves all extremities spontaneously Motor and sensory grossly intact on exam. PSYCH: Normal mood, normal affect. SKIN: Warm, Dry, normal turgor, no rashes or lesions noted on exposed skin - Related Data Allergies/Adverse Reactions: cephalexin monohydrate [From Keflex] Allergy (Intermediate, Verified 03/31/18 10:28) rash Past Medical History - Social History Smoking Status: Current Every Day Smoker Chew tobacco use (# tins/day): No Frequency of alcohol use: Rare Drug Abuse: None Family History: Reviewed & Not Pertinent Patient has suicidal ideation: No Patient has homicidal ideation: No - Past Medical History Cardiac Medical History: Reports: Hx DVT Denies: Hx Atrial Fibrillation, Hx Congestive Heart Failure, Hx Coronary Artery Disease, Hx Heart Attack, Hx Hypercholesterolemia, Hx Hypertension, Hx Pulmonary Embolism Pulmonary Medical History: Reports: Hx Asthma Denies: Hx Bronchitis, Hx COPD, Hx Pneumonia, Hx Sleep Apnea Neurological Medical History: Denies: Hx Cerebrovascular Accident, Hx Seizures Endocrine Medical History: Denies: Hx Diabetes Mellitus Type 1, Hx Diabetes Mellitus Type 2, Hx Hyperthyroidism, Hx Hypothyroidism Renal/ Medical History: Denies: Hx Peritoneal Dialysis GI Medical History: Denies: Hx Cirrhosis, Hx Gastroesophageal Reflux Disease, Hx Hepatitis Musculoskeletal Medical History: Reports Hx Arthritis - Rheumatoid Psychiatric Medical History: Denies: Hx Depression Infectious Medical History: Denies: Hx Hepatitis Past Surgical History: Reports: Hx Section - 1, Hx Hysterectomy, Hx Orthopedic Surgery - R knee - Immunizations Hx Diphtheria, Pertussis, Tetanus Vaccination: Yes Physical Exam - Vital signs Vitals: Temp Pulse Resp BP Pulse Ox 98.8 F 96 20 143/82 H 100 03/31/18 10:30 03/31/18 10:30 03/31/18 10:30 03/31/18 10:30 03/31/18 10:30 Course - Re-evaluation Re-evalutation: 03/31/18 13:37 Vitals reviewed. Nursing notes reviewed. Patient's hemoglobin is high. She is hemodynamically stable. She has not had any bleeding while in the emergency room. Patient's bleeding is likely from an internal hemorrhoid. She will follow back up with her surgeon who performed her banding. She will return for any increased bleeding, lightheadedness or new concerning symptoms. She is in agreement with this plan and stable at discharge. Laboratory 03/31/18 03/31/18 11:50 11:50 WBC 7.6 RBC 5.27 Hgb 17.1 H Hct 49.0 H MCV 93 MCH 32.5 MCHC 34.9 RDW 13.0 Plt Count 213 Seg Neutrophils % 66.9 Lymphocytes % 23.4 Monocytes % 6.2 Eosinophils % 2.5 Basophils % 1.0 Absolute Neutrophils 5.1 Absolute Lymphocytes 1.8 Absolute Monocytes 0.5 Absolute Eosinophils 0.2 Absolute Basophils 0.1 Sodium 139.2 Potassium 4.1 Chloride 105 Carbon Dioxide 25 Anion Gap 9 BUN 9 Creatinine 0.67 Est GFR ( Amer) > 60 Est GFR (Non-Af Amer) > 60 Glucose 90 Calcium 10.0 Total Bilirubin 0.5 Direct Bilirubin 0.2 Neonat Total Bilirubin Not Reportable Neonat Direct Bilirubin Not Reportable Neonat Indirect Bili Not Reportable AST 28 ALT 38 Alkaline Phosphatase 98 Total Protein 7.7 Albumin 5.1 H KUB X-Ray 03/31/18 11:04 IMPRESSION: NO RADIOGRAPHIC EVIDENCE FOR ACUTE ABDOMINAL DISEASE. - Vital Signs Vital signs: Temp Pulse Resp BP Pulse Ox 98.8 F 96 20 143/82 H 100 03/31/18 10:30 03/31/18 10:30 03/31/18 10:30 03/31/18 10:30 03/31/18 10:30 - Laboratory Result Diagrams: 03/31/18 11:50 03/31/18 11:50 Laboratory results interpreted by me: 03/31/18 03/31/18 11:50 11:50 Hgb 17.1 H Hct 49.0 H Albumin 5.1 H Discharge - Discharge Clinical Impression: Blood in stool, vijay Condition: Stable Disposition: HOME, SELF-CARE Instructions: Hemorrhoids ([facility]) Additional Instructions: Please return to the emergency department if you have any worsening, or concern of your symptoms. Please return to the emergency department if you develop chest pain, difficulty breathing, severe abdominal pain, or ongoing vomiting. Please follow-up with your primary care physician in 2-3 days and any other recommended physicians. If prescribed, take all medications as directed. If you have any questions or concerns do not hesitate to return the emergency department for evaluation. Use MiraLAX or [id number] stool softeners to prevent constipation Referrals: MELISSA HODGES DO [Primary Care Provider] - Follow up as needed ROSAMARIA RICKETTS MD [ACTIVE STAFF] - Follow up in 3-5 days
[2018-03-31 13:50] VITALS: BP 125/80
== END 2018-03-31 13:50 | disposition home or self-care (01) ==
LOC: ER 10:25
DX: K92.1 Melena (principal); F17.200 Nicotine dependence, unspecified, uncomplicated; Z90.710 Acquired absence of both cervix and uterus
CPT/HCPCS: 36415; 74018; 80053; 85025; 99284

== ENCOUNTER 2018-04-25 04:07 | Emergency (ER) | payer OTHER, MEDICAID ==
[2018-04-25 04:16] VITALS: BP 151/104
[2018-04-25] MEDS ORDERED: HYDROCODONE/ACETAMINOPHEN 5-325 MG TABLET PO ONE (04:30)
--- NOTE | 2018-04-25 04:34 | ER Document Report ---
ED General - General Chief Complaint: Fall Injury Stated Complaint: SIDE PAIN/TROUBLE BREATHING Time Seen by Provider: 04/25/18 04:27 Primary Care Provider: MELISSA HODGES DO [NO LOCAL MD] - Follow up as needed Notes: Patient is a 42-year-old female presents with complaint of right-sided rib pain. Some difficulty breathing. No fevers. She says she fell on onto her right ribs. She said pain is worsened and her breathing became worse tonight. States she moved and felt a pop in her right side and then the pain become more severe and her breathing got worse. She does have history of asthma. She does smoke. No other complaints at this time. TRAVEL OUTSIDE OF THE [place] IN LAST 30 DAYS: No - Related Data Allergies/Adverse Reactions: cephalexin monohydrate [From Keflex] Allergy (Intermediate, Verified 03/31/18 10:28) rash Past Medical History - Social History Smoking Status: Current Every Day Smoker Frequency of alcohol use: None Drug Abuse: None Family History: Reviewed & Not Pertinent - Past Medical History Cardiac Medical History: Reports: Hx DVT Denies: Hx Atrial Fibrillation, Hx Congestive Heart Failure, Hx Coronary Artery Disease, Hx Heart Attack, Hx Hypercholesterolemia, Hx Hypertension, Hx Pulmonary Embolism Pulmonary Medical History: Reports: Hx Asthma Denies: Hx Bronchitis, Hx COPD, Hx Pneumonia, Hx Sleep Apnea Neurological Medical History: Denies: Hx Cerebrovascular Accident, Hx Seizures Endocrine Medical History: Denies: Hx Diabetes Mellitus Type 1, Hx Diabetes Mellitus Type 2, Hx Hyperthyroidism, Hx Hypothyroidism Renal/ Medical History: Denies: Hx Peritoneal Dialysis GI Medical History: Denies: Hx Cirrhosis, Hx Gastroesophageal Reflux Disease, Hx Hepatitis Musculoskeletal Medical History: Reports Hx Arthritis - Rheumatoid Psychiatric Medical History: Denies: Hx Depression Infectious Medical History: Denies: Hx Hepatitis Past Surgical History: Reports: Hx Section - 1, Hx Hysterectomy, Hx Orthopedic Surgery - R knee - Immunizations Hx Diphtheria, Pertussis, Tetanus Vaccination: Yes Review of Systems - Review of Systems Notes: My Normal Review Basic REVIEW OF SYSTEMS: CONSTITUTIONAL : Denies fever, chills, or sweats. Denies recent illness. EENT: Denies eye, ear, throat, or mouth pain or symptoms. Denies nasal or sinus congestion. RESPIRATORY: Clear to breathing GASTROINTESTINAL: Denies abdominal pain. Denies nausea, vomiting, or diarrhea. MUSCULOSKELETAL: Pain over right ribs over the area of around ribs 5 and 6 SKIN: Denies rash or skin lesions. NEUROLOGICAL: Denies altered mental status or loss of consciousness. Denies headache. Denies weakness or paralysis or loss of use of either side. Denies problems with gait or speech. Denies sensory or motor loss. ALL OTHER SYSTEMS REVIEWED AND NEGATIVE. Physical Exam - Vital signs Vitals: Temp Pulse Resp BP Pulse Ox 99.2 F 86 24 H 151/104 H 96 04/25/18 04:14 04/25/18 04:14 04/25/18 04:14 04/25/18 04:14 04/25/18 04:14 - Notes Notes: General Appearance: Well nourished, alert, cooperative, no acute distress, moderate obvious discomfort. Vitals: reviewed, See vital signs table. Eyes: PERRL, EOMI, Conjuctiva clear Lungs: No wheezing, No rales, No rhonci, No accessory muscle use, good air exchange bilaterally. Heart: Normal rate, Regular rythm, No murmur, no rub Chest wall: Patient has pinpoint pain to palpation around ribs 5 and 6 in the mid axillary line on the right side. Small amount of bruising over this area. Abdomen: Normal BS, soft, No rigidity, No abdominal tenderness, No guarding, no rebound, no abdominal masses, no organomegaly Neuro: speech clear, oriented x 3, normal affect, responds appropriately to questions. Course - Re-evaluation Re-evalutation: 04/25/18 05:34 Patient's rib pain is improved after the [place]. She still has some pain obviously with splinting her breathing which first arrived. I will prescribe her some [place] but informed her to take this sparingly so that she does not become dependent on it. Patient agrees with this. They will send the patient home with incentive spirometer to help prevent development of pneumonia and to keep her lungs expanded. I encouraged her return to ER if she has tried oral pain, fevers, difficulty breathing, or feels that she is worsening in any way. Patient agrees with plan and will be discharged home. Dictation of this chart was performed using voice recognition software; therefore, there may be some unintended grammatical errors. - Vital Signs Vital signs: Temp Pulse Resp BP Pulse Ox 99.2 F 86 24 H 151/104 H 96 04/25/18 04:14 04/25/18 04:14 04/25/18 04:14 04/25/18 04:14 04/25/18 04:14 Discharge - Discharge Clinical Impression: Rib pain on right side Condition: Good Disposition: HOME, SELF-CARE Additional Instructions: Rib Injuries and Fractures You have been diagnosed as having either bruised or broken ribs. These two injuries are treated in the same way. It will usually take four to six weeks for these injured ribs to heal. Sometimes, rib belts or anesthetic injections of the chest wall help reduce the pain. If you are using a rib belt, you should cough or take a deep breath at least every hour or two to prevent lung complications. You should not engage in any strenuous physical activity until released by your physician. The usual rule is "if it hurts, don't do it." Rib fractures can lead to serious lung complications including lung collapse, hemorrhage, and pneumonia. You should call the physician or return at once if any of the following occur: (1) Fever or chills. (2) Persistent cough, coughing up blood, or shortness of breath. (3) Increasing pain. (4) Weakness, lightheadedness, or fainting. Use the incentive spirometer to take a deep breath at least once every hour. This will help prevent development of pneumonia. Please be aware that [place] does have Tylenol (acetaminophen) in it. Please make sure you do not take more than 4000 mg of acetaminophen a day. Do not drive or care for children after you have taken this medication they will make you sleepy and sometimes impair judgment. Please take the [place] only for severe breakthrough pain and uses sparingly so you do not develop dependence or addiction to the medication. Prescriptions: Hydrocodone/Acetaminophen [[place] 5-325 mg Tablet] 1 tab PO Q4 PRN #16 tablet PRN Reason: For Breakthrough Pain Referrals: MELISSA HODGES DO [NO LOCAL MD] - Follow up in 3-5 days
--- NOTE | 2018-04-25 05:28 | RADIOLOGY REPORT (SQ) ---
EXAM DESCRIPTION: XR RIBS UNILATERAL WITH CHEST COMPLETED DATE/TME: 04/25/2018 04:30 CLINICAL HISTORY: 42 years Female, trauma COMPARISON: None. NUMBER OF VIEWS/TECHNIQUE: 2 FINDINGS: No displaced rib fracture. Mild deformity of right fifth and sixth anterolateral ribs may indicate prior injury. No pneumothorax. No acute cardiopulmonary findings. IMPRESSION: No acute findings.
[2018-04-25] MEDS ORDERED: HYDROCODONE/ACETAMINOPHEN 5-325 MG (6 TAB/ER DISP) PO PRN (05:32)
== END 2018-04-25 05:49 | disposition home or self-care (01) ==
LOC: ER 04:07
DX: R07.81 Pleurodynia (principal); W19.XXXA Unspecified fall, initial encounter; J45.909 Unspecified asthma, uncomplicated; Z88.1 Allergy status to other antibiotic agents
CPT/HCPCS: 99283

== ENCOUNTER → 2018-05-16 | Outpatient (CLI) | payer OTHER, MEDICAID ==
--- NOTE | 2018-05-16 12:03 | WOMENS IMAGING REPORT ---
EXAM DESCRIPTION: BILAT SCREENING MAMMO W/CAD COMPLETED DATE/TIME: 05/16/2018 10:48 am REASON FOR STUDY: ROUTINE BILATERAL SCREENING,Z12.31 Z12.31 ENCNTR SCREEN MAMMOGRAM FOR MALIGNANT N EOPLASM OF LEYDA COMPARISON: 2016 TECHNIQUE: Standard craniocaudal and mediolateral oblique views of each breast recorded using digita l acquisition. Additional "push-back" craniocaudal and mediolateral oblique images acquired. LIMITATIONS: None. FINDINGS: IMPLANTS: Bilateral subpectoral implants. Findings present which are benign by mammographic criteria. No suspicious masses, calcifications or architectural distortion. Read with the assistance of CAD. .[facility] - R2 Cenova Version 1.3 .[facility] - R2 Cenova Version 2.1 .[facility] - R2 Cenova Version 2.4 .[facility] - R2 Cenova Version 2.4 .[facility] - R2 Fingerprint Technician Version 9.2 Benign mammographic findings may include one or more of the following: Smooth masses, popcorn/rim/co arse calcifications, asymmetries, post-procedure changes, and lesions with long-standing stability. IMPRESSION: BENIGN MAMMOGRAPHIC FINDINGS. BIRADS 2 BREAST DENSITY: b. There are scattered areas of fibroglandular density. BIRAD: 2 BENIGN FINDING(S) RECOMMENDATION: ROUTINE SCREENING COMMENT: The patient has been notified of the results by letter per SA requirements. Additional no tification policies are in place for contacting patient with suspicious or incomplete findings. Quality ID #[id number]: The [employer] recommends an annual screening mammogram for women aged 40 years or over. This facility utilizes a reminder system to ensure that all patients receive reminder letters, and/or direct phone calls for appointments. This includes reminders for routine scr eening mammograms, diagnostic mammograms, or other Breast Imaging Interventions when appropriate. Th is patient will be placed in the appropriate reminder system. The [employer] ([employer]) has developed recommendations for screening MRI of the breast s in certain patient populations, to be used in conjunction with mammography. Breast MRI surveillanc e may be appropriate for women with more than 20% lifetime risk of developing breast cancer as deter mined by genetic testing, significant family history of the disease, or history of mantle radiation f or Hodgkins Disease. ACR Practice Guidelines 2008. TECHNICAL DOCUMENTATION: FINDING NUMBER: (1) ASSESSMENT: (1) JOB ID: [id number] [employer]- All Rights Reserved Reading location - IP/workstation name: [email or web address]
== END ==
LOC: WI 10:27
PROVIDERS: ATTEND Family Medicine
DX: Z12.31 Encounter for screening mammogram for malignant neoplasm of breast (principal); Z98.82 Breast implant status
CPT/HCPCS: 77067

== ENCOUNTER 2018-10-19 07:05 | Emergency (ER) | payer MEDICAID, OTHER ==
[2018-10-19] MEDS ORDERED: MORPHINE SULFATE 10 MG/ML INJ IM ONE (08:06)
[2018-10-19] MEDS ORDERED: ONDANSETRON 4 MG TAB.RAPDIS PO ONE (08:06)
--- NOTE | 2018-10-19 08:09 | ER Document Report ---
ED General - General Chief Complaint: Knee Injury Stated Complaint: KNEE PAIN, DIFFICULTY BREATHING Time Seen by Provider: 10/19/18 07:34 Primary Care Provider: MELISSA HODGES DO [Primary Care Provider] - Follow up as needed BÁRBARA KWOK MD [ACTIVE STAFF] - Follow up in 3-5 days Mode of Arrival: Wheelchair Information source: Patient, Relative, [facility] Records Notes: 43-year-old female with rheumatoid arthritis presents with complaint of left knee pain that began yesterday evening. Patient states that she was on a tile floor when she twisted her knee. Patient proceeded to fall to the ground. She denies head injury but states that she has been a unable to weight-bear since this time. TRAVEL OUTSIDE OF THE [place] IN LAST 30 DAYS: No - HPI Onset: Yesterday Onset/Duration: Gradual, Persistent Quality of pain: Throbbing Severity: Severe Pain Level: 4 Associated symptoms: Body/muscle aches, Nausea. denies: Nonproductive cough, Productive cough, Headache, Leg swelling, Vomiting, Shortness of breath Exacerbated by: Denies, Movement, Walking Relieved by: Denies Similar symptoms previously: No Recently seen / treated by doctor: No - Related Data Allergies/Adverse Reactions: cephalexin monohydrate [From Keflex] Allergy (Intermediate, Verified 03/31/18 10:28) rash Past Medical History - General Information source: Patient - Social History Smoking Status: Current Every Day Smoker Cigarette use (# per day): Yes Smoking Education Provided: Yes Frequency of alcohol use: None Drug Abuse: None Lives with: Family, Spouse/Significant other Family History: Reviewed & Not Pertinent Patient has suicidal ideation: No Patient has homicidal ideation: No - Past Medical History Cardiac Medical History: Reports: Hx DVT Denies: Hx Atrial Fibrillation, Hx Congestive Heart Failure, Hx Coronary Artery Disease, Hx Heart Attack, Hx Hypercholesterolemia, Hx Hypertension, Hx Pulmonary Embolism Pulmonary Medical History: Reports: Hx Asthma Denies: Hx Bronchitis, Hx COPD, Hx Pneumonia, Hx Sleep Apnea Neurological Medical History: Denies: Hx Cerebrovascular Accident, Hx Seizures Endocrine Medical History: Denies: Hx Diabetes Mellitus Type 1, Hx Diabetes Mellitus Type 2, Hx Hyperthyroidism, Hx Hypothyroidism Renal/ Medical History: Denies: Hx Peritoneal Dialysis GI Medical History: Denies: Hx Cirrhosis, Hx Gastroesophageal Reflux Disease, Hx Hepatitis Musculoskeletal Medical History: Reports Hx Arthritis - Rheumatoid Psychiatric Medical History: Denies: Hx Depression Infectious Medical History: Denies: Hx Hepatitis Past Surgical History: Reports: Hx Section - 1, Hx Hysterectomy, Hx Orthopedic Surgery - R knee - Immunizations Hx Diphtheria, Pertussis, Tetanus Vaccination: Yes Review of Systems - Review of Systems Notes: REVIEW OF SYSTEMS: CONSTITUTIONAL : Denies fever, chills, or sweats. Denies recent illness. Denies weight loss, recent hospitalizations. EENT: Denies visual changes, eye pain. Denies sore throat, oral lesions, difficulty swallowing. CARDIOVASCULAR: Denies chest pain. Denies palpitations. Denies lower extremity edema. RESPIRATORY: Denies cough. Denies shortness of breath, wheezing. GASTROINTESTINAL: Denies abdominal pain or distention. Denies vomiting, or diarrhea. Denies blood in vomitus, stools, or per rectum. Denies black, tarry stools. Denies constipation. GENITOURINARY: Denies difficulty urinating, painful urination, frequency, blood in urine, or vaginal discharge. MUSCULOSKELETAL: Denies back or neck pain or stiffness. + joint pain or swelling. SKIN: Denies rash, lesions or sores. HEMATOLOGIC : Denies easy bruising or bleeding. LYMPHATIC: Denies swollen glands. NEUROLOGICAL: Denies confusion or altered mental status. Denies loss of consciousness. Denies dizziness or lightheadedness. Denies headache. Denies weakness or paralysis. Denies problems difficulty with ambulation, slurred speech. Denies sensory loss, numbness, or tingling. Denies seizures. PSYCHIATRIC: Denies anxiety or stress. Denies depression, suicidal ideation, or homicidal ideation. Denies visual or auditory hallucinations. Physical Exam - Vital signs Vitals: Temp Pulse Resp BP Pulse Ox 98.1 F 98 22 H 123/85 97 10/19/18 07:09 10/19/18 07:09 10/19/18 07:09 10/19/18 07:09 10/19/18 07:09 - Notes Notes: PHYSICAL EXAMINATION: GENERAL: Well-appearing, well-nourished and in no acute distress. HEAD: Atraumatic, normocephalic. EYES: Pupils equal round and reactive to light, extraocular movements intact, conjunctiva are normal. ENT: Nares patent, oropharynx clear without exudates. Moist mucous membranes. NECK: Normal range of motion, supple without lymphadenopathy LUNGS: Breath sounds clear to auscultation bilaterally and equal. No wheezes rales or rhonchi. HEART: Regular rate and rhythm without murmurs ABDOMEN: Soft, nontender, nondistended abdomen. No guarding, no rebound. No masses appreciated. Female : deferred Musculoskeletal: Normal range of motion, no pitting or edema. No cyanosis. Limited range of motion of the left knee. No obvious deformity, no obvious swelling. Tenderness with palpation to the medial meniscus. NEUROLOGICAL: Cranial nerves grossly intact. Normal speech, normal gait. Normal sensory, motor exams PSYCH: Normal mood, normal affect. SKIN: Warm, Dry, normal turgor, no rashes or lesions noted. Course - Re-evaluation Re-evalutation: 10/19/18 09:59 Knee X-Ray 10/19/18 08:02 IMPRESSION: No fracture or dislocation of the left knee. Small nonspecific knee joint effusion. The patella is laterally deviated and tilted on sunrise patella view, of uncertain significance as an isolated finding; the patella is normally aligned on the AP and lateral views. Temp Pulse Resp BP Pulse Ox 98.5 F 81 16 114/85 94 10/19/18 09:37 10/19/18 09:37 10/19/18 09:37 10/19/18 09:37 10/19/18 09:37 43-year-old female presents with left knee pain after falling at her home yesterday evening. Patient reports pain with ambulation. She states that her foot was planted when she twisted her knee landing directly onto her kneecap. Vital signs reviewed and within normal limits. Patient does not appear toxic although she does appear to be in pain. IM morphine was administered and patient does report improvement of her pain. X-ray of the knee was obtained and showed no fracture or dislocation but did show a small joint effusion. Patient was placed in a knee immobilizer and provided crutches. She does have an orthopedic surgeon that she can follow-up with. Advised ice, elevation and anti-inflammatory medications. Patient was evaluated and treated as appropriate for the patient's presenting symptoms and complaint, with consideration of any critical or life threatening conditions that may be associated with their obtained history and exam as noted above. All results were discussed with patient. Patient provided the opportunity to ask questions, and express concerns. Patient was educated on treatments based on their presumed diagnosis as noted above. At this time we will discharge the patient with return precautions and follow-up recommendations. Verbal discharge instructions given a the bedside. Medication warnings reviewed. Patient is in agreement with this plan and has verbalized understanding of return precautions. After careful consideration I feel that that patient can be safely discharged from the emergency department, they were advised to followup with a primary care physician in 2-3 days. Dictation on this chart was performed using voice recognition software and may result in unintended grammatical, spelling, syntax or errors. - Vital Signs Vital signs: Temp Pulse Resp BP Pulse Ox 98.5 F 81 16 114/85 94 10/19/18 09:37 10/19/18 09:37 10/19/18 09:37 10/19/18 09:37 10/19/18 09:37 - Diagnostic Test Radiology reviewed: Image reviewed, Reports reviewed Discharge - Discharge Clinical Impression: Internal derangement of knee Qualifiers: Laterality: left Qualified Code(s): M23.92 - Unspecified internal derangement of left knee Knee contusion Qualifiers: Encounter type: initial encounter Laterality: left Qualified Code(s): S80.02XA - Contusion of left knee, initial encounter Condition: Good Disposition: HOME, SELF-CARE Instructions: Use of Crutches ([facility]), Ice & Elevation ([facility]), Suspected Internal Knee Injury ([facility]), Knee Immobilizing Splint ([facility]), Sprained Knee ([facility]) Prescriptions: Naproxen [Naprosyn] 500 mg PO Q12H 7 Days #14 tablet Oxycodone HCl/Acetaminophen [Percocet 5-325 mg Tablet] 1 tab PO Q6H PRN #15 tablet PRN Reason: Forms: Return to Work Referrals: MELISSA HODGES DO [Primary Care Provider] - Follow up as needed BÁRBARA KWOK MD [ACTIVE STAFF] - Follow up in 3-5 days
--- NOTE | 2018-10-19 08:33 | RADIOLOGY REPORT (SQ) ---
EXAM DESCRIPTION: KNEE LEFT 3 VIEWS COMPLETED DATE/TIME: 10/19/2018 8:21 am REASON FOR STUDY: fall sunrise view COMPARISON: None. NUMBER OF VIEWS: Three views. TECHNIQUE: AP, lateral, and sunrise patella radiographic images acquired of the left knee. LIMITATIONS: None. FINDINGS: MINERALIZATION: Normal. BONES: No acute fracture or dislocation. No worrisome bone lesions. The patella is laterally deviat ed and tilted on sunrise patella view. JOINT: Small nonspecific knee joint effusion. Joint spaces are preserved. SOFT TISSUES: No soft tissue swelling. No radio-opaque foreign body. OTHER: No other significant finding. IMPRESSION: No fracture or dislocation of the left knee. Small nonspecific knee joint effusion. Th e patella is laterally deviated and tilted on sunrise patella view, of uncertain significance as an i solated finding; the patella is normally aligned on the AP and lateral views. TECHNICAL DOCUMENTATION: JOB ID: [id number] [employer]- All Rights Reserved Reading location - IP/workstation name: [email or web address]
[2018-10-19 09:39] VITALS: BP 114/85
== END 2018-10-19 09:47 | disposition home or self-care (01) ==
LOC: ER 07:05
DX: S80.02XA Contusion of left knee, initial encounter (principal); W01.0XXA Fall on same level from slipping, tripping and stumbling without subsequent striking against object, initial encounter; Y92.009 Unspecified place in unspecified non-institutional (private) residence as the place of occurrence of the external cause; M25.462 Effusion, left knee; R11.0 Nausea; F17.210 Nicotine dependence, cigarettes, uncomplicated; J45.909 Unspecified asthma, uncomplicated; Z88.1 Allergy status to other antibiotic agents
CPT/HCPCS: 99283; 96372; 73562; L1830; S0119; J2270

== ENCOUNTER 2018-11-14 07:47 | Day surgery (SDC) | payer OTHER ==
[2018-11-07 11:50] LABS: APPEARANCE,URINE SLIGHTLY-CLOUDY; BILIRUBIN,URINE NEGATIVE (NEGATIVE); COLOR,URINE YELLOW; GLUCOSE, URINE NEGATIVE (NEGATIVE); KETONES,URINE NEGATIVE (NEGATIVE); LEUKOCYTE ESTERASE,URINE NEGATIVE (NEGATIVE); NITRITE,URINE NEGATIVE (NEGATIVE); PROTEIN,URINE NEGATIVE (NEGATIVE); URINE SPECIFIC GRAVITY 1.017
[2018-11-07 12:00] LABS: ANION GAP 12 (5-19); BLOOD UREA NITROGEN 13 mg/dL (7-20); CARBON DIOXIDE 26 mmol/L (22-30); CHLORIDE 102 mmol/L (98-107); GLUCOSE 76 mg/dL (75-110); POTASSIUM 4.2 mmol/L (3.6-5.0)
[2018-11-07 13:08] LABS: HEMATOCRIT 45.6 % (36.0-47.0); HEMOGLOBIN 15.8 g/dL (12.0-15.5); MEAN CORPUSCULAR HEMOGLOBIN 32.2 pg (27.0-33.4); MEAN CORPUSCULAR HGB CONC 34.5 g/dL (32.0-36.0); MEAN CORPUSCULAR VOLUME 93 fl (80-97); PLATELET COUNT 259 10^3/uL (150-450); RED CELL DISTRIBUTION WIDTH 13.5 % (11.5-14.0); WHITE BLOOD COUNT 7.8 10^3/uL (4.0-10.5)
--- NOTE | 2018-11-07 13:20 | RADIOLOGY REPORT (SQ) ---
EXAM DESCRIPTION: CHEST PA/LATERAL COMPLETED DATE/TIME: 11/07/2018 11:21 am REASON FOR STUDY: PRE-OP COMPARISON: 06/06/2016 EXAM PARAMETERS: NUMBER OF VIEWS: two views TECHNIQUE: Digital Frontal and Lateral radiographic views of the chest acquired. RADIATION DOSE: NA LIMITATIONS: none FINDINGS: LUNGS AND PLEURA: No opacities, masses or pneumothorax. No pleural effusion. MEDIASTINUM AND HILAR STRUCTURES: No masses or contour abnormalities. HEART AND VASCULAR STRUCTURES: Heart normal size. No evidence for failure. BONES: No acute findings. HARDWARE: None in the chest. OTHER: No other significant finding. IMPRESSION: NO SIGNIFICANT RADIOGRAPHIC FINDING IN THE CHEST. TECHNICAL DOCUMENTATION: JOB ID: [id number] Company- All Rights Reserved Reading location - IP/workstation name: [email or web address]
--- NOTE | 2018-11-07 15:49 | EKG REPORT ---
SEVERITY:- ABNORMAL ECG - SINUS RHYTHM CONSIDER LEFT VENTRICULAR HYPERTROPHY : Confirmed by: Vita Griffin MD 07-Nov-2018 15:48:48
[~2018-11-14 07:47] MED LIST changes: +CEFAZOLIN SODIUM 2 GM in DEXTROSE 5%-WATER 100 ML IV PRN; -DEXAMETHASONE SOD PHOSPHATE INJ 4 MG/1 ML VIAL ONE; -METRONIDAZOLE 500 MG/NS RTU 500 MG/100 ML RTUPB IV PRN; -ONDANSETRON HCL INJ/PF 4 MG/2 ML SDV ONE; -SUCCINYLCHOLINE CHLORIDE INJ 200 MG/10 ML VIAL ONE
[2018-11-14] MEDS ORDERED: LIDOCAINE 1%/EPINEPHRINE INJ 20 ML VIAL ONE (09:06)
[2018-11-14] MEDS ORDERED: BUPIVACAINE HCL 0.5 % INJ/PF 30 ML SDV ONE (09:06)
[2018-11-14] MEDS ORDERED: FENTANYL CITRATE INJ/PF 100 MCG/2 ML AMPUL ONE ×2 (09:26→12:18)
[2018-11-14] MEDS ORDERED: HYDROMORPHONE HCL INJ/PF 2 MG/ML AMPULE ONE (09:26)
[2018-11-14] MEDS ORDERED: MIDAZOLAM 2 MG/2 ML INJ ONE (09:26)
[2018-11-14] MEDS ORDERED: PROPOFOL INJ 200 MG/20 ML VIAL IV ONE (09:27)
[2018-11-14] MEDS ORDERED: CLINDAMYCIN 600 MG/D5W RTU 600 MG/50 ML RTUPB IV ONE (10:06)
[2018-11-14] MEDS ORDERED: FENTANYL CITRATE INJ/PF 100 MCG/2 ML AMPUL IV PRN ×3 (10:49)
[2018-11-14] MEDS ORDERED: DIPHENHYDRAMINE HCL 50 MG/ML VIAL IV PRN (10:49)
[2018-11-14] MEDS ORDERED: PROMETHAZINE HCL INJ 25 MG/1 ML VIAL IV PRN ×2 (10:49)
[2018-11-14] MEDS ORDERED: MEPERIDINE HCL/PF INJ 25 MG/1 ML DISP.SYRIN IV PRN (10:49)
[2018-11-14] MEDS ORDERED: HYDROMORPHONE HCL INJ/PF 2 MG/ML AMPULE IV PRN (10:50)
--- NOTE | 2018-11-14 11:33 | Discharge Summary ---
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 Underlying OpSite dressing can remain in place until you return to the office Prescriptions: Oxycodone HCl/Acetaminophen [Percocet 5-325 mg Tablet] 1 tab PO Q6 PRN #40 tab PRN Reason: Referrals: MELISSA HODGES DO [Primary Care Provider] - Respiratory Treatments at Home: Deep Breathing/Coughing Discharge Activity: Balance Activity w/Rest, No tub bath Home Care Assistance: Provided by Family Report the Following to Your Physician Immediately: Shortness of Breath, Fever over 101 Degrees, Drainage-Foul Smelling
--- NOTE | 2018-11-14 11:39 | Operative Report ---
Operative Report DATE OF SURGERY: 11/14/18 PREOPERATIVE DIAGNOSIS: Osteochondral lesion left patella POSTOPERATIVE DIAGNOSIS: Osteochondral lesion left patella. Grade 0-I chondromalacia the medial compartment. Intact lateral meniscus. Intact ACL. Grade 1 chondral malacia lateral compartment. Lateral meniscal tear. Trochlear groove: Grade II chondromalacia. Patellar chondral surgeon surface grade III chondromalacia OPERATION: 1. arthroscopic retrieval of loose bodies left knee. #2 abrasion chondroplasty microfracture patella articular surface. #3 partial lateral meniscectomy. #4 tibial tubercle osteotomy SURGEON: BÁRBARA KWOK ANESTHESIA: GA TISSUE REMOVED OR ALTERED: Osteochondral loose bodies to pathology ESTIMATED BLOOD LOSS: Minimal PROCEDURE: With the patient supine on the operative table left lower extremities prepped and draped in sterile fashion. The knee is insufflated with combination of Marcaine, Xylocaine, and epinephrine. Subsequent medial lateral patella portals are created for the introduction of arthroscope and debridements mentation. The joint is examined in systematic fashion findings as above. Loose bodies are removed using a grabber. The articular surface of the patella is debrided using mechanical shaver. Microfracture awls were then used to perform microfracture to the articular surface the patella. The electric electro frequency ablation probe was then used to perform a partial lateral meniscectomy from approximately 6:00 to 12:00 on the face of the dial. Arthroscopic instrumentation was removed and the portals reapproximated interrupted nylon. Subsequently the limb is elevated for exsanguination tourniquet inflated 280 torr. Longitudinal incision was made over the proximal tibia and sharp dissection was carried incision down to the periosteum. Pins were placed across the tibial tubercle for the alignment of the osteotomy. 3 parallel pins are placed in appropriate position and subsequently an oscillating saw was then used to fashion the osteotomy. An osteotome was then used to elevate the osteotomy and translocated medially and superficially. This is had and held in place with two 6.5 millimeters screws. The tourniquet is deflated. The wound is irrigated. Hemostasis obtained with electrocautery. The fascial layer reapproximated interrupted nylon. The subcutaneous layer using interrupted nylon in the skin with Steri-Strips and Dermabond. A sterile compressive dressing was applied and the patient's return to the PACU in satisfactory condition.
[2018-11-14] MEDS ORDERED: PROMETHAZINE HCL INJ 25 MG/1 ML VIAL ONE (11:59)
[2018-11-14] MEDS: HYDROMORPHONE HCL INJ/PF 2 MG/ML AMPULE ONE ×4 (12:09→12:33)
[2018-11-14] MEDS ORDERED: OXYCODONE-ACETAMINOPHEN 5-325 MG TABLET PO PRN (12:38)
[2018-11-14] MEDS ORDERED: OXYCODONE-ACETAMINOPHEN 5-325 MG TABLET ONE (13:17)
--- NOTE | 2018-11-14 14:34 | RADIOLOGY REPORT (SQ) ---
EXAM DESCRIPTION: KNEE LEFT 2 VIEWS; NO CHG FLUORO COMPLETED DATE/TIME: 11/14/2018 2:17 pm REASON FOR STUDY: LEFT KNEE OSTEOTOMY ASST WITH FLUORO IN OR S82.012D DISPL OSTEOCHON FX L PATELLA, SUBS FOR CLOS FX W RO COMPARISON: None. FLUOROSCOPY TIME: 0.2 minutes Spot images saved to PACS. TECHNIQUE: Intra-operative images acquired during surgical procedure to evaluate progress. NUMBER OF IMAGES: 2 LIMITATIONS: None. FINDINGS: Fluoroscopy was provided for intraoperative procedure. Please refer to the operative repo rt for further discussion. IMPRESSION: IMAGE(S) OBTAINED DURING PROCEDURE. COMMENT: Quality ID 145: Final reports for procedures using fluoroscopy that document radiation exp osure indices, or exposure time and number of fluorographic images (if radiation exposure indices are not available) Please consult full operative report of the attending physician for description of the procedure. TECHNICAL DOCUMENTATION: JOB ID: [id number] [employer]- All Rights Reserved Reading location - IP/workstation name: [email or web address]
--- NOTE | 2018-11-14 14:34 | RADIOLOGY REPORT (SQ) ---
EXAM DESCRIPTION: KNEE LEFT 2 VIEWS; NO CHG FLUORO COMPLETED DATE/TIME: 11/14/2018 2:17 pm REASON FOR STUDY: LEFT KNEE OSTEOTOMY ASST WITH FLUORO IN OR S82.012D DISPL OSTEOCHON FX L PATELLA, SUBS FOR CLOS FX W RO COMPARISON: None. FLUOROSCOPY TIME: 0.2 minutes Spot images saved to PACS. TECHNIQUE: Intra-operative images acquired during surgical procedure to evaluate progress. NUMBER OF IMAGES: 2 LIMITATIONS: None. FINDINGS: Fluoroscopy was provided for intraoperative procedure. Please refer to the operative repo rt for further discussion. IMPRESSION: IMAGE(S) OBTAINED DURING PROCEDURE. COMMENT: Quality ID [id number]: Final reports for procedures using fluoroscopy that document radiation exp osure indices, or exposure time and number of fluorographic images (if radiation exposure indices are not available) Please consult full operative report of the attending physician for description of the procedure. TECHNICAL DOCUMENTATION: JOB ID: [id number] [employer]- All Rights Reserved Reading location - IP/workstation name: [email or web address]
[2018-11-14] MEDS ORDERED: KETOROLAC TROMETHAMINE 60 MG/2 ML SDV ONE (16:03)
[2018-11-14] MEDS ORDERED: ONDANSETRON HCL INJ/PF 4 MG/2 ML SDV ONE (16:03)
[2018-11-14] MEDS ORDERED: LIDOCAINE 2% INJ-PF (20 MG/ML) 2 ML AMPUL ONE (16:03)
[2018-11-14] MEDS ORDERED: METOCLOPRAMIDE HCL INJ/PF 10 MG/2 ML SDV ONE (16:03)
[2018-11-14 18:23] VITALS: BP 133/92
== END 2018-11-14 14:20 | disposition home or self-care (01) ==
LOC: OROUT 07:47
PROVIDERS: ATTEND Orthopaedic Surgery
DX: S82.012D Displaced osteochondral fracture of left patella, subsequent encounter for closed fracture with routine healing (principal); X58.XXXD Exposure to other specified factors, subsequent encounter; M22.42 Chondromalacia patellae, left knee; M23.42 Loose body in knee, left knee; M25.562 Pain in left knee; F17.210 Nicotine dependence, cigarettes, uncomplicated; J45.909 Unspecified asthma, uncomplicated; D64.9 Anemia, unspecified; Z79.51 Long term (current) use of inhaled steroids; Z79.899 Other long term (current) drug therapy
CPT/HCPCS: 93005; 36415; 85027; 80048; 81001; 88311; 71046; 73560; 93010; 29881; 29879; 27705; J2250; J3490 ×3; J1885; J3010; J2765; J1170; J2550; J2405; J2704; J0690; J7060

== ENCOUNTER 2018-11-21 13:06 | Emergency (ER) | payer OTHER ==
[2018-11-21] MEDS ORDERED: OXYCODONE-ACETAMINOPHEN 5-325 MG TABLET PO ONE (13:30)
[2018-11-21] MEDS ORDERED: ONDANSETRON 4 MG TAB.RAPDIS PO ONE (13:30)
--- NOTE | 2018-11-21 13:32 | ER Document Report ---
ED Medical Screen (RME) - General Chief Complaint: Post Surgical Pain Stated Complaint: KNEE PAIN Time Seen by Provider: 11/21/18 13:22 Primary Care Provider: MELISSA HODGES DO [Primary Care Provider] - Follow up as needed Notes: Patient is a 43-year-old female presents to the emergency department with a chief complaint of left lower leg pain and swelling. Patient states that one week ago she had reconstructive surgery to the left knee. Patient states this morning she woke up with redness to the left anterior lower extremity and swelling. Patient states she has been using ice, elevation, her Percocet and ibuprofen without much relief. Patient concerned for an infection. Patient states her follow-up appointment with Dr. Kaplan is on but concern for an infection to the redness and swelling. TRAVEL OUTSIDE OF THE [place] IN LAST 30 DAYS: No - Related Data Allergies/Adverse Reactions: cephalexin monohydrate [From Keflex] Allergy (Intermediate, Verified 11/21/18 13:07) rash Past Medical History - Social History Frequency of alcohol use: None Drug Abuse: None - Past Medical History Cardiac Medical History: Reports: Hx DVT Denies: Hx Atrial Fibrillation, Hx Congestive Heart Failure, Hx Coronary Artery Disease, Hx Heart Attack, Hx Hypercholesterolemia, Hx Hypertension, Hx Pulmonary Embolism Pulmonary Medical History: Reports: Hx Asthma - couple days ago Denies: Hx Bronchitis, Hx COPD, Hx Pneumonia, Hx Sleep Apnea Neurological Medical History: Denies: Hx Cerebrovascular Accident, Hx Seizures Endocrine Medical History: Denies: Hx Diabetes Mellitus Type 1, Hx Diabetes Mellitus Type 2, Hx Hyperthyroidism, Hx Hypothyroidism Renal/ Medical History: Denies: Hx Peritoneal Dialysis GI Medical History: Denies: Hx Cirrhosis, Hx Gastroesophageal Reflux Disease, Hx Hepatitis Musculoskeltal Medical History: Reports Hx Arthritis - Rheumatoid Psychiatric Medical History: Denies: Hx Depression Infectious Medical History: Denies: Hx Hepatitis Past Surgical History: Reports: Hx Section - 1, Hx Hysterectomy, Hx Orthopedic Surgery - R knee - Immunizations Hx Diphtheria, Pertussis, Tetanus Vaccination: Yes History of Influenza Vaccine for 12/2016 - 05/2017 Season: No Physical Exam - Vital signs Vitals: Temp Pulse Resp BP Pulse Ox 99.5 F 112 H 16 127/78 H 97 11/21/18 13:10 11/21/18 13:10 11/21/18 13:10 11/21/18 13:10 11/21/18 13:10 - Extremities Notes: There is erythema, edema noted to the left anterior lower extremity. There is no calf pain. There is no ecchymosis. Patient does have a dressing that is dry and intact. Course - Re-evaluation Re-evalutation: 11/21/18 13:32 I have greeted and performed a rapid initial assessment of this patient. A comprehensive ED assessment and evaluation of the patient, analysis of test results and completion of the medical decision making process will be conducted by additional ED providers. - Vital Signs Vital signs: Temp Pulse Resp BP Pulse Ox 99.5 F 112 H 16 127/78 H 97 11/21/18 13:10 11/21/18 13:10 11/21/18 13:10 11/21/18 13:10 11/21/18 13:10 Doctor's Discharge - Discharge Referrals: MELISSA HODGES DO [Primary Care Provider] - Follow up as needed
[2018-11-21 14:07] LABS: HEMATOCRIT 43.3 % (36.0-47.0); MEAN CORPUSCULAR HEMOGLOBIN 31.5 pg (27.0-33.4); MEAN CORPUSCULAR HGB CONC 34.5 g/dL (32.0-36.0); MEAN CORPUSCULAR VOLUME 91 fl (80-97); PLATELET COUNT 351 10^3/uL (150-450); RED BLOOD COUNT 4.75 10^6/uL (3.72-5.28); RED CELL DISTRIBUTION WIDTH 13.1 % (11.5-14.0); WHITE BLOOD COUNT 7.4 10^3/uL (4.0-10.5)
[2018-11-21 14:21] LABS: ANION GAP 10 (5-19); BLOOD UREA NITROGEN 13 mg/dL (7-20); CARBON DIOXIDE 27 mmol/L (22-30); CHLORIDE 103 mmol/L (98-107); GLUCOSE 96 mg/dL (75-110)
[2018-11-21 14:41] LABS: ABSOLUTE LYMPHOCYTES# (MANUAL) 1.1 10^3/uL (0.5-4.7); ABSOLUTE MONOCYTES # (MANUAL) 0.4 10^3/uL (0.1-1.4); BASOPHILS % (MANUAL) 0 % (0-2); EOSINOPHILS % (MANUAL) 6 % (0-6); LYMPHOCYTES % (MANUAL) 15 % (13-45); MONOCYTES % (MANUAL) 5 % (3-13); SEGMENTED NEUTROPHILS % (MAN) 74 % (42-78); TOTAL CELLS COUNTED 100
[2018-11-21 14:42] LABS: PLATELET COMMENT ADEQUATE; RBC MORPHOLOGY COMMENT NORMO-CYTIC/CHROMIC
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
--- NOTE | 2018-11-21 16:59 | RADIOLOGY REPORT (SQ) ---
EXAM DESCRIPTION: VENOUS UNILATERAL LOWER COMPLETED DATE/TIME: 11/21/2018 4:48 pm REASON FOR STUDY: DVT/SVT? left leg erythema/swelling s/p surgery COMPARISON: None. TECHNIQUE: Dynamic and static ryan scale and color images acquired of the left leg venous system. Se lected spectral images acquired with additional compression and augmentation maneuvers. The contralat eral common femoral vein and saphenofemoral junction were also imaged. Images stored on PACS. LIMITATIONS: None. FINDINGS: COMMON FEMORAL: Normal phasicity, compression and augmentation. No visualized echogenic ma terial on ryan scale. No defects on color images. FEMORAL: Normal compression and augmentation. No visualized echogenic material on ryan scale. No defe cts on color images. POPLITEAL: Normal compression, augmentation. No visualized echogenic material on ryan scale. No defec ts on color images. CALF VESSELS: Normal compression, augmentation. No visualized echogenic material on ryan scale. No de fects on color images. GSV and SSV: Normal compression, augmentation. No visualized echogenic material on ryan scale. No def ects on color images. ANY DEEP VENOUS INSUFFICIENCY: Not evaluated. ANY EVIDENCE OF POPLITEAL CYST: No. OTHER: No other significant finding. CONTRALATERAL COMMON FEMORAL VEIN AND SAPHENOFEMORAL JUNCTION: Normal phasicity, compression and augmentation. No visualized echogenic material on ryan scale. No de fects on color images. IMPRESSION: NO EVIDENCE DVT OR SVT IN THE LEFT LEG. TECHNICAL DOCUMENTATION: JOB ID: [id number] [employer]- All Rights Reserved Reading location - IP/workstation name: [email or web address]
[2018-11-21] MEDS ORDERED: HYDROCODONE/ACETAMINOPHEN 5-325 MG (6 TAB/ER DISP) PO PRN (17:14)
[2018-11-21 17:29] VITALS: BP 125/71
== END 2018-11-21 17:29 | disposition home or self-care (01) ==
LOC: ER 13:06
DX: M79.605 Pain in left leg (principal); G89.18 Other acute postprocedural pain; M25.562 Pain in left knee; M79.89 Other specified soft tissue disorders; F17.200 Nicotine dependence, unspecified, uncomplicated; J45.909 Unspecified asthma, uncomplicated
CPT/HCPCS: 99283; 36415; 85025; 80048; 93971; S0119

== ENCOUNTER 2020-01-14 08:22 | Emergency (ER) | payer OTHER ==
--- NOTE | 2020-01-14 09:25 | RADIOLOGY REPORT (SQ) ---
EXAM DESCRIPTION: FOOT RIGHT COMPLETE IMAGES COMPLETED DATE/TIME: 01/14/2020 9:17 am REASON FOR STUDY: bone tenderness/ 4th digit toe injury COMPARISON: None. NUMBER OF VIEWS: Three views. TECHNIQUE: AP, lateral and oblique radiographic images acquired of the right foot. LIMITATIONS: None. FINDINGS: MINERALIZATION: Normal. BONES: No acute fracture or dislocation. No worrisome bone lesions. JOINTS: No effusions. SOFT TISSUES: No soft tissue swelling. No foreign body. OTHER: No other significant finding. IMPRESSION: NEGATIVE STUDY OF THE RIGHT FOOT. NO RADIOGRAPHIC EVIDENCE OF ACUTE INJURY. TECHNICAL DOCUMENTATION: JOB ID: [id number] 2010 [employer]- All Rights Reserved Reading location - IP/workstation name: [email or web address]
--- NOTE | 2020-01-14 09:26 | RADIOLOGY REPORT (SQ) ---
EXAM DESCRIPTION: HAND RIGHT 3 VIEWS IMAGES COMPLETED DATE/TIME: 01/14/2020 9:17 am REASON FOR STUDY: bone tenderness/ swelling COMPARISON: None. EXAM PARAMETERS: NUMBER OF VIEWS: Three views. TECHNIQUE: AP, lateral and oblique radiographic images acquired of the right hand. LIMITATIONS: None. FINDINGS: MINERALIZATION: Normal. BONES: Oblique fracture of the distal 5th meta carpal with radial tilt JOINTS: No effusions. SOFT TISSUES: No soft tissue swelling. No foreign body. OTHER: No other significant finding. IMPRESSION: Oblique fracture of the distal 5th metacarpal. TECHNICAL DOCUMENTATION: JOB ID: [id number] 2010 [employer]- All Rights Reserved Reading location - IP/workstation name: [email or web address]
[2020-01-14] MEDS ORDERED: HYDROCODONE/ACETAMINOPHEN 5-325 MG TABLET PO ONE (10:36)
[2020-01-14] MEDS ORDERED: DIPH/PERTUSS(ACELL)/TETANUS VAC/PF 0.5 ML SYR (>=10YO) IM ONE (10:36)
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
[2020-01-14 10:47] VITALS: BP 127/85
== END 2020-01-14 11:33 | disposition home or self-care (01) ==
LOC: ER 08:22
DX: S62.336A Displaced fracture of neck of fifth metacarpal bone, right hand, initial encounter for closed fracture (principal); S91.114A Laceration without foreign body of right lesser toe(s) without damage to nail, initial encounter; W51.XXXA Accidental striking against or bumped into by another person, initial encounter; Y93.89 Activity, other specified; Y92.009 Unspecified place in unspecified non-institutional (private) residence as the place of occurrence of the external cause; F17.200 Nicotine dependence, unspecified, uncomplicated; J45.909 Unspecified asthma, uncomplicated; Z23 Encounter for immunization
CPT/HCPCS: 90471; 90715; 99284

== ENCOUNTER 2020-04-04 17:58 | Emergency (ER) | payer OTHER ==
[2020-04-04 18:15] VITALS: BP 132/45
== END 2020-04-04 18:31 | disposition left against medical advice (07) ==
LOC: ER 17:58
DX: Z53.21 Procedure and treatment not carried out due to patient leaving prior to being seen by health care provider (principal)

== ENCOUNTER 2020-04-16 00:23 | Emergency (ER) | payer OTHER ==
[2020-04-16] MEDS ORDERED: IPRATROPIUM/ALBUTEROL 0.5-2.5 MG/3 ML AMPUL NEB ONE (02:04)
[2020-04-16 02:28] LABS: ABSOLUTE BASOPHILS # (AUTO) 0.1 10^3/uL (0.0-0.2); ABSOLUTE EOSINOPHILS # (AUTO) 0.1 10^3/uL (0.0-0.6); ABSOLUTE LYMPHOCYTES (AUTO) 2.9 10^3/uL (0.5-4.7); ABSOLUTE MONOCYTES (AUTO) 1.3 10^3/uL (0.1-1.4); ABSOLUTE NEUT (AUTO) 13.7 10^3/uL (1.7-8.2); BASOPHILS % (AUTO) 0.6 % (0-2); EOSINOPHILS % (AUTO) 0.4 % (0-6); HEMATOCRIT 45.6 % (36.0-47.0); HEMOGLOBIN 15.7 g/dL (12.0-15.5); LYMPHOCYTES % (AUTO) 15.8 % (13-45); MEAN CORPUSCULAR HEMOGLOBIN 31.9 pg (27.0-33.4); MEAN CORPUSCULAR HGB CONC 34.3 g/dL (32.0-36.0); MEAN CORPUSCULAR VOLUME 93 fl (80-97); PLATELET COUNT 244 10^3/uL (150-450); RED BLOOD COUNT 4.91 10^6/uL (3.72-5.28); RED CELL DISTRIBUTION WIDTH 14.1 % (11.5-14.0); SEGMENTED NEUTROPHILS % (AUTO) 76.2 % (42-78); TOTAL CELLS COUNTED % (AUTO) 100 %
[2020-04-16 02:41] LABS: APPEARANCE,URINE CLEAR; BILIRUBIN,URINE NEGATIVE (NEGATIVE); COLOR,URINE STRAW; GLUCOSE, URINE NEGATIVE (NEGATIVE); KETONES,URINE NEGATIVE (NEGATIVE); LEUKOCYTE ESTERASE,URINE NEGATIVE (NEGATIVE); NITRITE,URINE NEGATIVE (NEGATIVE); PROTEIN,URINE NEGATIVE (NEGATIVE); URINE SPECIFIC GRAVITY 1.005; UROBILINOGEN,URINE NEGATIVE mg/dL (<2.0)
--- NOTE | 2020-04-16 02:43 | RADIOLOGY REPORT (SQ) ---
CHEST X-RAY 1 VIEW on 04/16/2020 at 2:11 AM CLINICAL INDICATION: Shortness of breath COMPARISON: 11/07/2018 FINDINGS: The lungs are clear. Cardiac, hilar and mediastinal contours are within normal limits. Pulmonary vascularity is within normal limits. No bony abnormality is noted. IMPRESSION: No active disease.
[2020-04-16 02:53] LABS: ALBUMIN 4.4 g/dL (3.5-5.0); ALKALINE PHOSPHATASE 81 U/L (38-126); ANION GAP 15 (5-19); ASPARTATE AMINO TRANSFERASE 25 U/L (14-36); BILIRUBIN,DIRECT 0.2 mg/dL (0.0-0.4); BILIRUBIN,TOTAL 0.3 mg/dL (0.2-1.3); BLOOD UREA NITROGEN 9 mg/dL (7-20); CALCIUM 10.1 mg/dL (8.4-10.2); CARBON DIOXIDE 18 mmol/L (22-30); CHLORIDE 108 mmol/L (98-107); GLUCOSE 110 mg/dL (75-110); TOTAL PROTEIN 7.2 g/dL (6.3-8.2)
[2020-04-16] MEDS ORDERED: NORMAL SALINE 1000 ML 1,000 ML IV ONE (03:01)
[2020-04-16] MEDS ORDERED: LORAZEPAM INJ 2 MG/1 ML VIAL IV ONE (03:01)
--- NOTE | 2020-04-16 04:02 | ER Document Report ---
ED Respiratory Problem - General TRAVEL OUTSIDE OF THE [place] IN LAST 30 DAYS: No <HODAN THURSTON - Last Filed: 04/16/20 06:08> <ANA M SAENZ - Last Filed: 04/16/20 08:06> - General Chief Complaint: Shortness Of Breath Stated Complaint: SHORTNESS OF BREATH Time Seen by Provider: 04/16/20 00:53 Primary Care Provider: MELISSA HODGES DO [Primary Care Provider] - Follow up in 3-5 days - [facility] Notes: Patient is a 44-year-old female with a past medical history of anxiety and asthma who presents with shortness of breath. Patient states she has been had a cough and shortness of breath for about 1 week. She is on prednisone from her family doctor. She states that today is the anniversary of when her son from asthma. She was very upset today. She states that she drank several alcoholic drinks today. She then became very anxious and began having trouble breathing. Her states that she has a history of anxiety and panic attacks like this. She states she has some chest tightness when she coughs. No fevers or chills. No nausea or vomiting. Patient also mentions that she is not suicidal but would not be upset if she . She states that she would not commit suicide because it would make her mother very upset but she does think about . (HODAN THURSTON) - Related Data Allergies/Adverse Reactions: cephalexin monohydrate [From Keflex] Allergy (Intermediate, Verified 01/14/20 08:55) rash Past Medical History - General Information source: Patient - Social History Smoking Status: Current Every Day Smoker Chew tobacco use (# tins/day): No Frequency of alcohol use: Social Family History: Reviewed & Not Pertinent - Past Medical History Cardiac Medical History: Reports: Hx DVT Denies: Hx Atrial Fibrillation, Hx Congestive Heart Failure, Hx Coronary Artery Disease, Hx Heart Attack, Hx Hypercholesterolemia, Hx Hypertension, Hx Pulmonary Embolism Pulmonary Medical History: Reports: Hx Asthma - couple days ago Denies: Hx Bronchitis, Hx COPD, Hx Pneumonia, Hx Sleep Apnea Neurological Medical History: Denies: Hx Cerebrovascular Accident, Hx Seizures Endocrine Medical History: Denies: Hx Diabetes Mellitus Type 1, Hx Diabetes Mellitus Type 2, Hx Hyperthyroidism, Hx Hypothyroidism Renal/ Medical History: Denies: Hx Peritoneal Dialysis GI Medical History: Denies: Hx Cirrhosis, Hx Gastroesophageal Reflux Disease, Hx Hepatitis Musculoskeletal Medical History: Reports Hx Arthritis - Rheumatoid Psychiatric Medical History: Denies: Hx Depression Infectious Medical History: Denies: Hx Hepatitis Past Surgical History: Reports: Hx Section - 1, Hx Hysterectomy, Hx Orthopedic Surgery - R knee - Immunizations Hx Diphtheria, Pertussis, Tetanus Vaccination: Yes <HODAN THURSTON - Last Filed: 04/16/20 06:08> Review of Systems <HODAN THURSTON - Last Filed: 04/16/20 06:08> - Review of Systems Notes: CONSTITUTIONAL: No fever, fatigue or weight loss. SKIN: No rash. HENT: No congestion, ear pain, or sore throat. EYES: No recent vision problems or eye pain. CARDIOVASCULAR: No chest pain or edema. RESPIRATORY: Positive for cough, shortness of breath, chest tightness GASTROINTESTINAL: No abdominal pain, nausea, vomiting. GENITOURINARY: No dysuria. MUSCULOSKELETAL: No joint pain or swelling. NEUROLOGIC: No seizures. No headache, focal weakness or sensory changes. HEMATOLOGIC: No unusual bruising or bleeding. PSYCHIATRIC: Positive for depression and anxiety. (HODAN THURSTON) Physical Exam - General General appearance: Appears well, Anxious In distress: None <HODAN THURSTON - Last Filed: 04/16/20 06:08> - Vital signs Vitals: Temp Pulse Resp BP Pulse Ox 98.0 F 154 H 22 H 102/70 97 04/16/20 00:34 04/16/20 00:34 04/16/20 00:34 04/16/20 00:34 04/16/20 00:34 - General Notes: VITAL SIGNS: Within normal limits. GENERAL: No acute distress, non-toxic appearance. HEAD: Normal with no signs of head trauma. EYES: Conjunctiva normal, no discharge. EARS: Hearing grossly intact. NOSE: Normal. NECK: Normal range of motion, no tenderness, supple. CHEST: Scant wheezing throughout lungs. CARDIAC: Regular rate and rhythm. VASCULAR: No Edema. ABDOMEN: Normal and soft with no tenderness. MUSCULOSKELETAL: Good range of motion of all major joints. Extremities without clubbing, cyanosis or edema. NEUROLOGICAL: Alert and oriented x 3. No focal sensory or strength deficits. Speech normal. Follows commands appropriately. PSYCHIATRIC: Normal Affect, judgement and mood. Anxious. SKIN: Normal appearance with no rashes or lesions. (HODAN THURSTON) Course - Laboratory Results Result Diagrams: 04/16/20 02:15 04/16/20 02:15 Critical Laboratory Results Reviewed: No Critical Results - Radiology Results Critical Radiology Results Reviewed: No Critical Results - EKG Interpretation by Me EKG shows normal: Sinus rhythm Rate: Tachycardia Rhythm: NSR When compared to previous EKG there are: No significant change <HODAN THURSTON - Last Filed: 04/16/20 06:08> - Laboratory Results Result Diagrams: 04/16/20 02:15 04/16/20 02:15 <ANA M SAENZ - Last Filed: 04/16/20 08:06> - Re-evaluation Re-evalutation: 04/16/20 05:48 Patient states she is very anxious. I did give her Ativan which helped her heart rate. She also drink alcohol today which could be making her tachycardic. I have given her fluids. Her D-dimer is normal so I do not suspect a PE. Her troponin is indeterminate. I will obtain another 1. Her EKG does not show any acute changes. She has no evidence of pneumonia. Likely, her white count is reactive from being on prednisone for a week. She is 95% on room air not tachypneic. Patient states she does not want Covid testing. Patient states she does want to talk to psychiatry which I believe is reasonable as she does have passive thoughts of dying. If she is discharged, she is already on prednisone so she will not need a prescription for this. Patient will need to be signed out to my colleague at the end of my shift for further disposition. 04/16/20 05:49 04/16/20 06:08 (HODAN THURSTON) 04/16/20 08:03 I was asked to reevaluate patient by nursing staff. Her asthma symptoms have totally resolved. She was supposed to be seen by behavioral health service because of anxiety/depression symptoms. She is decided now that she can follow- up with her own counselor on an outpatient basis. She wishes to leave at this time. Patient is in no respiratory distress. She is mildly tachycardic from nebulizer treatment she received earlier. She is alert and oriented x3 not expressing any suicidal or homicidal ideation not endorsing any hallucinations. I think she is stable for outpatient follow-up with her PMD and her behavioral counselor. is at the bedside and also states he would like to take his home. Findings, clinical impression and plan of treatment have been discussed with patient/family. Understanding of current findings and recommendations has been acknowledged by them and there is agreement regarding disposition and follow-up. (ANA M SAENZ) - Vital Signs Vital signs: Temp Pulse Resp BP Pulse Ox 98.0 F 154 H 24 H 108/73 96 04/16/20 00:34 04/16/20 00:34 04/16/20 07:30 04/16/20 07:30 04/16/20 07:30 - Laboratory Results Laboratory Results Interpreted: 04/16/20 04/16/20 04/16/20 02:15 02:15 02:15 WBC 18.0 H Hgb 15.7 H RDW 14.1 H Absolute Neuts (auto) 13.7 H Chloride 108 H Carbon Dioxide 18 L Acetaminophen < 10 L - EKG Interpretation by Me Additional EKG results interpreted by me: 04/16/20 04:01 Sinus tachycardia at a rate of 129. QTc 469. No acute ST changes. EKG is similar to previous. (HODAN THURSTON) Discharge <HODAN THURSTON - Last Filed: 04/16/20 06:08> <ANA M SAENZ - Last Filed: 04/16/20 08:06> - Discharge Clinical Impression: Anxiety Asthma exacerbation Qualifiers: Asthma severity: mild Asthma persistence: unspecified Qualified Code(s): J45.901 - Unspecified asthma with (acute) exacerbation Condition: Stable Disposition: HOME, SELF-CARE Instructions: Asthma ([facility]) Referrals: MELISSA HODEGS DO [Primary Care Provider] - Follow up in 3-5 days
[2020-04-16 04:30] LABS: SALICYLATE 14.1 mg/dL (2.0-20.0)
[2020-04-16 04:32] LABS: ACETAMINOPHEN < 10 ug/mL (10-30)
[2020-04-16 04:49] LABS: URINE AMPHETAMINES SCREEN NEGATIVE; URINE BARBITURATES SCREEN NEGATIVE; URINE BENZODIAZEPINES SCREEN NEGATIVE; URINE COCAINE SCREEN NEGATIVE; URINE MARIJUANA (THC) SCREEN NEGATIVE; URINE METHADONE SCREEN NEGATIVE; URINE PHENCYCLIDINE SCREEN NEGATIVE
[2020-04-16] MEDS ORDERED: ALBUTEROL SULFATE 0.083% NEB 2.5 MG/3 ML AMPUL NEB ONE (06:06)
[2020-04-16 08:25] VITALS: BP 116/90
--- NOTE | 2020-04-16 09:19 | EKG REPORT ---
SEVERITY:- ABNORMAL ECG - SINUS TACHYCARDIA PROBABLE LVH WITH SECONDARY REPOL ABNRM : Confirmed by: Stas Ulloa MD 16-Apr-2020 09:18:56
== END 2020-04-16 08:38 | disposition home or self-care (01) ==
LOC: ER 00:23
DX: J45.901 Unspecified asthma with (acute) exacerbation (principal); F41.9 Anxiety disorder, unspecified; F32.9 Major depressive disorder, single episode, unspecified; R06.02 Shortness of breath; R05 Cough; R07.89 Other chest pain; F17.200 Nicotine dependence, unspecified, uncomplicated; Z63.4 Disappearance and death of family member; Z88.1 Allergy status to other antibiotic agents
CPT/HCPCS: 93005; 94640 ×2; 99285; 96361; 96374; 36415; 80307 ×4; 84703; 85025; 80053; 81001; 84484; 85379; 71045; 93010; J2060; J7030; J7613